=== PATIENT | female | born 2000 | race Caucasian/White ===

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

== ENCOUNTER 2023-11-20 20:21 | Emergency (ER) | payer OTHER, SELFPAY ==
[2023-11-20] MEDS ORDERED: HYDROCODONE/APAP 7.5/325 MG TAB ONE (21:26)
--- NOTE | 2023-11-20 22:08 | RAD REPORT ---
Exam:Wrist Right 3 View HISTORY: Right wrist pain FINDINGS: No fracture or dislocation seen If the patient continues to have symptoms to suggest an occult fracture then a follow-up x-ray in 7 d ays would be recommended
--- NOTE | 2023-11-20 22:10 | RAD REPORT ---
Exam:Hand Right 3 View HISTORY: Right hand pain FINDINGS: No fracture or dislocation seen
--- NOTE | 2023-11-20 22:10 | RAD REPORT ---
Exam:Shoulder Right 2+ Views History: Right shoulder pain Findings: No fracture or dislocation seen
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
[2023-11-21 01:02] VITALS: TEMP 98
[2023-11-21 01:03] VITALS: O2SAT 99
[2023-11-21 01:06] VITALS: BP 134/53
== END 2023-11-21 00:29 | disposition home or self-care (01) ==
LOC: ER 20:21
DX: S43.491A Other sprain of right shoulder joint, initial encounter (principal); S63.8X1A Sprain of other part of right wrist and hand, initial encounter; S60.221A Contusion of right hand, initial encounter; V49.50XA Passenger injured in collision with unspecified motor vehicles in traffic accident, initial encounter
CPT/HCPCS: 99284

== ENCOUNTER 2024-01-31 11:23 | Emergency (ER) | payer BC, SELFPAY ==
[2024-01-31] MEDS ORDERED: KETOROLAC 30 MG/ML INJ ONE (11:44)
[2024-01-31 12:06] LABS: Absolute Basophils 0.1 K/uL (0-0.5); Absolute Eosinophils 0.1 K/uL (0-0.5); Absolute Lymphocytes (CBC) 2.7 K/uL (0.7-4.9); Absolute Monocytes 0.4 K/uL (0.1-1.3); Absolute Neutrophil 5.8 K/uL (1.8-8.0); Basophils % 0.6 % (0-1.3); Eosinophils % 0.9 % (0-4.4); Hematocrit 42.2 % (36.0-45.0); Hemoglobin 13.9 g/dL (12.0-15.0); Lymphocytes % 29.9 % (15.3-44.8); MCH 27.8 pg (27.0-35.0); MCV 84.2 fL (80-100); MPV 8.2 fL (7.6-11.3); Neutrophils % 64.6 % (41.7-73.7); Platelets 285 thou/uL (152-406); RBC Red Blood Cell Count 5.01 M/uL (3.86-4.86); Red Cell Distribution Width 13.2 % (12.1-15.2)
[2024-01-31 12:23] LABS: Albumin 3.8 g/dL (3.4-5.0); Anion Gap 5.6 mEq/L (5.0-15.0); Bilirubin Total 0.3 mg/dL (0.2-1.0); Potassium 3.6 mEq/L (3.5-5.1); Protein, Total 7.8 g/dL (6.4-8.2)
--- NOTE | 2024-01-31 12:49 | RAD REPORT ---
EXAMINATION: CT ABDOMEN AND PELVIS WITH CONTRAST CLINICAL INDICATION: ABD PAIN TECHNIQUE: CT abdomen and pelvis was performed, after the administration of IV contrast, as per [facility] protocol. Axial, sagittal and coronal reconstructions were obtained. One or more of the following dose reduction techniques were used: Automated exposure control, adjustment of the mA and k V according to patient size, and iterative reconstruction. Unless otherwise specified, incidental findings do not require dedicated imaging follow-up. COMPARISON: No prior exam. FINDINGS: LOWER CHEST: The visualized lung bases are clear. LIVER: Normal in size and contour. No focal lesion. Grossly unremarkable gallbladder. SPLEEN: Normal size. No focal lesion. PANCREAS: No mass, ductal dilation, or benjamín-pancreatic fluid. ADRENALS: Normal; no mass. KIDNEYS: Normal size and contour. No hydronephrosis. GASTROINTESTINAL TRACT: No evidence of free air, significant intra-abdominal free fluid, bowel obstru ction or abscess. APPENDIX: Normal appendix. LYMPH NODES: No lymphadenopathy. MUSCULOSKELETAL: No acute or suspicious osseous abnormality. ADDITIONAL FINDINGS: Small fat-containing hernia. IMPRESSION: No acute or concerning abnormalities seen in the abdomen or pelvis.
--- NOTE | 2024-01-31 12:53 | RAD REPORT ---
EXAMINATION: TWO VIEW CHEST XR CLINICAL INDICATION: CHEST PAIN TECHNIQUE: 2 views of the chest was performed. COMPARISON: No prior exam. FINDINGS: The lungs are well inflated and clear. The heart is normal in size. No displaced fractures evident. IMPRESSION: No acute or significant abnormalities.
--- NOTE | 2024-01-31 13:47 | ER ---
Nurse's Notes [facility] Name: Dana Patton Age: 23 yrs Sex: Female : 2000 Arrival Date: 01/31/2024 Time: 11:23 Bed 13 Private MD: Diagnosis: Abdominal pain, Generalized;Chest pain, unspecified Presentation: 01/30 11:32 Chief complaint: Patient states: Abdominal pain and intermittent CP started today at 7 ll1 AM. Left work to come get checked out. Coronavirus screen: Client denies travel out of the [place] in the last 14 days. At this time, the client does not indicate any symptoms associated with coronavirus-19. Ebola Screen: Patient denies travel to an Ebola-affected area in the 21 days before illness onset. Initial Sepsis Screen: Does the patient meet any 2 criteria? No. Patient's initial sepsis screen is negative. Does the patient have a suspected source of infection? No. Patient's initial sepsis screen is negative. Risk Assessment: Do you want to hurt yourself or someone else? Patient reports no desire to harm self or others. Onset of symptoms was January 31, 2024. 11:32 Method Of Arrival: Wheelchair ll1 11:32 Acuity: DOMINGO 3 ll1 Triage Assessment: 11:34 General: Appears in no apparent distress. Behavior is calm, cooperative, appropriate ll1 for age. Pain: Complains of pain in abdomen Quality of pain is described as aching, crampy. Cardiovascular: Reports chest pain. GI: Reports lower abdominal pain, upper abdominal pain, cramping, nausea. Historical: - Allergies: 11:32 Adhesives; ll1 - PMHx: 11:32 depressive disorder; Lupus erythematosus; PCOS; ll1 - PSHx: 11:32 ectopic lap.; R wrist SX; ll1 - Immunization history:: Adult Immunizations up to date. - Infectious Disease History:: Denies. - Social history:: Smoking status: Patient denies any tobacco usage or history of. Screenin:32 [facility] ED Fall Risk Assessment (Adult) History of falling in the last 3 months, ph including since admission No falls in past 3 months (0 pts) Confusion or Disorientation No (0 pts) Intoxicated or Sedated No (0 pts) Impaired Gait No (0 pts) Mobility Assist Device Used No (0 pt) Altered Elimination No (0 pt) Score/Fall Risk Level 0 - 2 = Low Risk Oriented to surroundings, Maintained a safe environment, Hourly rounding (assess needs \T\ fall precautionary measures) done. Abuse screen: Denies threats or abuse. Denies injuries from another. Nutritional screening: No deficits noted. Tuberculosis screening: No symptoms or risk factors identified. Assessment: 12:03 General: Appears in no apparent distress. comfortable, well groomed, Behavior is calm, ph cooperative, appropriate for age. Pain: Complains of pain in abdomen Pain radiates to chest Pain began this morning. Neuro: Level of Consciousness is awake, alert, obeys commands, Oriented to person, place, time, situation. Cardiovascular: Capillary refill < 3 seconds in bilateral fingers Patient's skin is warm and dry. Respiratory: Airway is patent Respiratory effort is even, unlabored. GI: Reports upper abdominal pain, nausea, Patient currently denies diarrhea, vomiting. : No signs and/or symptoms were reported regarding the genitourinary system. Derm: Skin is pink, warm \T\ dry. Musculoskeletal: Circulation, motion, and sensation intact. Range of motion: intact in all extremities. 14:02 Reassessment: Patient appears in no apparent distress at this time. Patient and/or ph family updated on plan of care and expected duration. Pain level reassessed. Patient is alert, oriented x 3, equal unlabored respirations, skin warm/dry/pink. Vital Signs: 11:32 BP 135 / 86; Pulse 83; Resp 17; Temp 97.7; Pulse Ox 99% on R/A; Weight 87.09 kg; Height ll1 5 ft. 5 in. ; Pain 9/10; 12:04 BP 124 / 81; Pulse 69; Resp 18; Pulse Ox 95% on R/A; ph 14:02 BP 118 / 72; Pulse 67; Resp 18; Temp 97.9; Pulse Ox 98% on R/A; ph 11:32 Body Mass Index 31.95 (87.09 kg, 165.1 cm) ll1 11:32 Pain Scale: Adult ll1 ED Course: 11:28 Patient arrived in ED. ra3 11:28 Kumar Melvin DO is Attending Physician. ms3 11:32 Nely Beth RN is Primary Nurse. ph 11:32 Arm band placed on Patient placed in an exam room, on a stretcher. ll1 11:34 Triage completed. ll1 11:40 Patient has correct armband on for positive identification. Placed in gown. Bed in low ph position. Call light in reach. Side rails up X 1. Pulse ox on. NIBP on. Door closed. Noise minimized. Warm blanket given. Pillow given. 11:41 EKG done, by ED staff, reviewed by Kumar Melvin DO. bc6 11:50 Initial lab(s) drawn, by me, sent to lab. Inserted saline lock: 22 gauge in left ph antecubital area, using aseptic technique. Blood collected. Flushed with 10 mL NS. 12:01 Radiology exam delayed due to test not completed at this time. md2 12:02 CBC with Diff Sent. ph 12:02 CMP Sent. ph 12:02 Lipase Sent. ph 12:03 Test, Serum Sent. ph 12:05 Patient maintains SpO2 saturation greater than 95% on room air. ph 12:42 CT Abd/Pelvis - IV Contrast Only In Process Unspecified. EDMS 12:47 Chest Pa And Lat (2 Views) XRAY In Process Unspecified. EDMS 13:46 Boy Villalpando DO is Referral Physician. ms3 14:03 No provider procedures requiring assistance completed. IV discontinued, intact, ph bleeding controlled, No redness/swelling at site. Pressure dressing applied. Administered Medications: 12:02 Drug: TORadol - Ketorolac IVP 15 mg IVP once Route: IVP; Site: left antecubital; ph 14:02 Follow up: Response: No adverse reaction; Pain is decreased ph Medication: 11:33 VIS not applicable for this client. ph Outcome: 13:46 Discharge ordered by MD. ms3 14:03 Discharged to home ambulatory, ph 14:03 Condition: good 14:03 Discharge instructions given to patient, Instructed on discharge instructions, follow up and referral plans. Demonstrated understanding of instructions, follow-up care, 14:03 Patient left the ED. ph Signatures: Dispatcher [employer] EDMS Nely Beth RN RN ph Will French RN RN ll1 Kumar Melvin DO DO ms3 Mera Mary md2 Brenda Looney bc6 Mikki Mondragon ra3
--- NOTE | 2024-01-31 13:47 | EDPHYS ---
Physician Documentation [facility] Name: Dana Patton Age: 23 yrs Sex: Female : 2000 Arrival Date: 01/31/2024 Time: 11:23 Bed 13 Private MD: ED Physician Kumar Melvin HPI: 01/30 12:01 This 23 yrs old Female presents to ER via Wheelchair with complaints of Chest Pain - ms3 with stomach pain. 12:01 Dana Le is a 23-year-old female who presents to the Emergency Department with ms3 severe abdominal and chest pain since 7 AM today. She rates her pain as 8.5 to 9 out of 10. The abdominal pain is diffuse but includes a sharp pain over the left ovary. She reports that standing and driving increase her pain. She reports not having nausea, vomiting, diarrhea, or fever. She has a history of polycystic ovary syndrome (PCOS). . Historical: - Allergies: 11:32 Adhesives; ll1 - PMHx: 11:32 depressive disorder; Lupus erythematosus; PCOS; ll1 - PSHx: 11:32 ectopic lap.; R wrist SX; ll1 - Immunization history:: Adult Immunizations up to date. - Infectious Disease History:: Denies. - Social history:: Smoking status: Patient denies any tobacco usage or history of. ROS: 12:01 Constitutional: Negative for fever, and chills. Cardiovascular: Negative for chest ms3 pain, and palpitations. Respiratory: Negative for shortness of breath, cough, wheezing, and pleuritic chest pain, 12:01 MS/Extremity: Negative for injury and deformity, Skin: Negative for injury, rash, and discoloration, 12:01 Abdomen/GI: Positive for abdominal pain, Exam: 12:01 Constitutional: This is a well developed, well nourished patient who is awake, alert, ms3 and in no acute distress. Head/Face: Normocephalic, atraumatic. Chest/axilla: Normal chest wall appearance and motion. Nontender with no deformity. Cardiovascular: Regular rate and rhythm with a normal S1 and S2. No gallops, murmurs, or rubs. Normal PMI, no JVD. No pulse deficits. Respiratory: Lungs have equal breath sounds bilaterally, clear to auscultation and percussion. No rales, rhonchi or wheezes noted. No increased work of breathing, no retractions or nasal flaring. 12:01 Abdomen/GI: Inspection: abdomen appears normal, Bowel sounds: normal, Palpation: moderate abdominal tenderness, in the left upper quadrant and left lower quadrant, 12:03 ECG was reviewed by the Attending Physician. ms3 Vital Signs: 11:32 BP 135 / 86; Pulse 83; Resp 17; Temp 97.7; Pulse Ox 99% on R/A; Weight 87.09 kg; Height ll1 5 ft. 5 in. ; Pain 9/10; 12:04 BP 124 / 81; Pulse 69; Resp 18; Pulse Ox 95% on R/A; ph 14:02 BP 118 / 72; Pulse 67; Resp 18; Temp 97.9; Pulse Ox 98% on R/A; ph 11:32 Body Mass Index 31.95 (87.09 kg, 165.1 cm) ll1 11:32 Pain Scale: Adult ll1 MDM: 11:51 Medical Screening Exam initiated ms3 12:01 Differential diagnosis: abnormal EKG, acute myocardial infarction. ms3 12:02 Differential diagnosis: pneumothorax, bowel obstruction, diverticulitis. ms3 13:47 HEART Score: History: Slightly Suspicious (0), ECG: Normal (0), Age: < or = 45 years ms3 (0), Risk Factors: No Risk Factors Known (0), Troponin: < or = 1 x Normal Limit (0), Total Score = 0. Data reviewed: vital signs, nurses notes, lab test result(s), EKG, radiologic studies, CT scan, plain films. I considered the following discharge prescriptions or medication management in the emergency department Medications were administered in the Emergency Department. See MAR. Independent interpretation of the following test(s) in the Emergency Department EKG: See my EKG interpretation above. Counseling: I had a detailed discussion with the patient and/or guardian regarding the historical points, exam findings, and any diagnostic results supporting the discharge/admit diagnosis, lab results, radiology results, the need for outpatient follow up, to return to the emergency department if symptoms worsen or persist or if there are any questions or concerns that arise at home. Special discussion: Based on the patient's Hx, exam, and Dx evaluation, there is no indication for emergent surgery or inpatient Tx. It is understood by the patient/guardian that if the Sx's persist or worsen they need to return immediately for re-evaluation. ED course: Discussed labs and imaging with patient. CT scan showing small fat-containing hernia. Patient to follow-up with primary care physician in 2 to 3 days. Patient or stands and agrees with plan. All questions were answered. Return precautions discussed include worsening symptoms, or any other concerns. On reevaluation patient symptoms improved, patient is alert and orient x 4, in no apparent distress, nontoxic-appearing. 01/30 11:41 Order name: CBC with Diff; Complete Time: 12:32 ms3 01/30 11:41 Order name: CMP; Complete Time: 12:32 ms3 01/30 11:41 Order name: Lipase; Complete Time: 12:32 ms3 01/30 11:41 Order name: Test, Serum; Complete Time: 12:32 ms3 01/30 11:41 Order name: CT Abd/Pelvis - IV Contrast Only; Complete Time: 13:34 ms3 01/30 11:41 Order name: Chest Pa And Lat (2 Views) XRAY; Complete Time: 13:34 ms3 01/30 11:41 Order name: EKG; Complete Time: 11:42 ms3 01/30 11:41 Order name: IV Saline Lock; Complete Time: 12:02 ms3 01/30 11:41 Order name: Labs collected and sent; Complete Time: 12:02 ms3 01/30 11:41 Order name: EKG - Nurse/Tech; Complete Time: 11:41 ms3 EC:03 Rate is 74 beats/min. Rhythm is regular. QRS [place] is Normal. DE interval is normal. QRS ms3 interval is normal. Clinical impression: NSR w/ Non-specific ST/T Changes. Interpreted by me. Reviewed by me. Administered Medications: 12:02 Drug: TORadol - Ketorolac IVP 15 mg IVP once Route: IVP; Site: left antecubital; ph 14:02 Follow up: Response: No adverse reaction; Pain is decreased ph Disposition Summary: 01/31/24 13:46 Discharge Ordered Notes: Location: Home ms3 Condition: Stable ms3 Diagnosis - Abdominal pain, Generalized ms3 - Chest pain, unspecified ms3 Followup: ms3 - With: Boy Villalpando, DO - When: 2 - 3 days - Reason: Recheck today's complaints Discharge Instructions: - Discharge Summary Sheet ll1 - Abdominal Pain, Adult ms3 - Nonspecific Chest Pain, Adult ms3 Forms: - Work release form ll1 - Medication Reconciliation Form ms3 - Antibiotic Education ms3 - Prescription Opioid Use ms3 - Patient Portal Instructions ms3 - Leadership Thank You Letter ms3 Signatures: Dispatcher [employer] Nely Sarkar RN RN Manolo, CELINE Solis RN 1 Kumar Melvin, DO DO ms3
[2024-01-31 14:12] VITALS: BP 118/72; TEMP 97.9; O2SAT 98
--- NOTE | 2024-02-02 15:51 | EKG ---
Test Date: 2024-01-31 Test Time: 11:35:33 Straw Baler: ERASTOW MEASUREMENT RESULTS: Intervals: Rate: 74 TX: 154 QRSD: 86 QT: 360 QTc: 399 [place]: P: 52 TX: 154 QRS: 73 T: 40 INTERPRETIVE STATEMENTS: Normal sinus rhythm Nonspecific T wave abnormality Abnormal ECG No previous ECG available for comparison Electronically Signed On 02-02-24 15:48:18 TRUCK JUMPER by Ward Masters
== END 2024-01-31 14:03 | disposition home or self-care (01) ==
LOC: ER 11:23
DX: R07.9 Chest pain, unspecified (principal); R10.84 Generalized abdominal pain
CPT/HCPCS: 93005; 85025; 36415; 84703; 83690; 80053; 74177; 71046; 96374; 99284; Q9967

== ENCOUNTER 2024-02-04 00:17 | Emergency (ER) | payer BC ==
[2024-02-04] MEDS ORDERED: ONDANSETRON 4 MG/2 ML VIAL ONE (00:40)
[2024-02-04] MEDS ORDERED: KETOROLAC 30 MG/ML INJ ONE (00:40)
[2024-02-04] MEDS ORDERED: NA CHLORIDE 0.9% 1,000 ML ONE ×2 (00:40→02:59)
[2024-02-04 00:52] LABS: Absolute Basophils 0.1 K/uL (0-0.5); Absolute Eosinophils 0.3 K/uL (0-0.5); Absolute Lymphocytes (CBC) 5.2 K/uL (0.7-4.9); Absolute Monocytes 0.7 K/uL (0.1-1.3); Absolute Neutrophil 6.4 K/uL (1.8-8.0); Basophils % 1.1 % (0-1.3); Eosinophils % 2.7 % (0-4.4); Hematocrit 40.8 % (36.0-45.0); Hemoglobin 13.8 g/dL (12.0-15.0); Lymphocytes % 40.4 % (15.3-44.8); MCHC 33.9 g/dL (32.0-36.0); MCV 82.6 fL (80-100); MPV 7.9 fL (7.6-11.3); Monocytes % 5.5 % (3.3-12.3); Neutrophils % 50.3 % (41.7-73.7); Nucleated Red Blood Cells % 0.3 % (0-0); Platelets 302 thou/uL (152-406); RBC Red Blood Cell Count 4.94 M/uL (3.86-4.86); Red Cell Distribution Width 13.7 % (12.1-15.2)
[2024-02-04 01:07] LABS: Albumin 3.5 g/dL (3.4-5.0); Albumin/Globulin Ratio 0.9 (1.1-1.8); Anion Gap 10.5 mEq/L (5.0-15.0); Bilirubin Total 0.2 mg/dL (0.2-1.0); Potassium 3.5 mEq/L (3.5-5.1); Protein, Total 7.5 g/dL (6.4-8.2)
[2024-02-04] MEDS ORDERED: FENTANYL CITR 100 MCG/2 ML ONE (01:35)
--- NOTE | 2024-02-04 02:11 | RAD REPORT ---
EXAM: US Pelvis Transabdominal, Complete CLINICAL HISTORY: The patient is 23 years old and is Female; ABD PAIN TECHNIQUE: Real-time complete transabdominal pelvic ultrasound with image documentation. COMPARISON: No relevant prior studies available. FINDINGS: UTERUS/CERVIX: The uterus measures 6.6 x 2.9 x 5.5 cm. Endometrium measures 0.3 cm. No myometri al mass. RIGHT OVARY: The right ovary measures 3.3 x 1.9 x 3.1 cm. Normal blood flow. LEFT OVARY: The left ovary measures 3.8 x 1.9 x 2.7 cm. Normal blood flow. FREE FLUID: Free fluid is present within the cul-de-sac. BLADDER: Unremarkable as visualized. Wall is normal thickness for degree of distention. IMPRESSION: Unremarkable pelvic ultrasound. Electronically signed by: Adelaida Flaherty MD 02/04/2024 01:[address] [facility] Due to temporary technical issues with the PACS/Quaam scribe reporting system, reports are being sign ed by the in-house radiologist without review as a courtesy to ensure prompt reporting the interpreting rad iologist is fully responsible for the content of the report. Transcribed Date/Time: 02/04/2024 2:10 AM
[2024-02-04] MEDS ORDERED: LORazepam 2 MG/ML VIAL ONE (02:15)
[2024-02-04 02:37] LABS: Specific Gravity 1.017 (1.005-1.030); Sqamous Epithelial None Seen /HPF (None Seen); Urine Bacteria None Seen /HPF (<20); Urine Bilirubin NEGATIVE (Negative); Urine Blood Negative (Negative); Urine Clarity Clear (Clear); Urine Color Colorless (Yellow); Urine Crystals Unidentified Few /HPF (None Seen); Urine Culture Reflex Order NOT NEEDED; Urine Glucose NEGATIVE (Negative); Urine Ketones NEGATIVE (Negative); Urine Microscopic Reflex YN ORDER UMIC; Urine Nitrite NEGATIVE (Negative); Urine Protein NEGATIVE (Negative); Urine RBC <5 /HPF (None Seen); Urine Urobilinogen Normal (Normal); Urine WBC <5 /HPF (<5)
[2024-02-04] MEDS ORDERED: DICYCLOMINE HCL 20 MG/2 ML AMP IM ONE (02:58)
[2024-02-04] MEDS ORDERED: dexAMETHasone 10 MG/ML VIAL ONE (02:58)
[2024-02-04] MEDS ORDERED: CIPROFLOXACIN 400mg IV 400 MG/200 ML BAG IV ONE (02:59)
[2024-02-04] MEDS ORDERED: METRONIDAZOLE 500mg IVPB 500 MG/100 ML BAG IV ONE (02:59)
--- NOTE | 2024-02-04 03:00 | RAD REPORT ---
EXAM: CT Abdomen and Pelvis With Intravenous Contrast CLINICAL HISTORY: The patient is 23 years old and is Female; lower abdomen pain TECHNIQUE: Axial computed tomography images of the abdomen and pelvis with intravenous contrast. Sagittal an d coronal reformatted images were created and reviewed. This CT exam was performed using one or more of the following dose reduction techniques: automated exposure control, adjustment of the mA a nd/or kV according to patient size, and/or use of iterative reconstruction technique. COMPARISON: CT January 31, 2024 FINDINGS: LUNG BASES: Unremarkable. No mass. No consolidation. ABDOMEN: LIVER: Unremarkable. No mass. GALLBLADDER AND BILE DUCTS: No calcified stones. No ductal dilation. PANCREAS: No ductal dilation. No mass. SPLEEN: Unremarkable. ADRENALS: Unremarkable. No mass. KIDNEYS AND URETERS: Unremarkable. The kidneys enhance symmetrically. No obstructing renal or ure teral calculus is seen. No hydronephrosis or hydroureter. No perinephric fluid or stranding. STOMACH AND BOWEL: The stomach is distended with food contents. The small bowel is fluid-filled a nd normal in caliber. A moderate rectal stool ball is present. A moderate amount of stool is present throughout the colon. Mucosal thickening involving the distal descending and sigmoid colon is noted. There is no evidence of obstruction. PELVIS: APPENDIX: The appendix is normal in caliber without surrounding inflammation. BLADDER: Unremarkable. No mass. REPRODUCTIVE: Unremarkable as visualized. ABDOMEN and PELVIS: INTRAPERITONEAL SPACE: Unremarkable. No free air. No significant fluid collection. BONES/JOINTS: No acute fracture. SOFT TISSUES: Tiny fat-containing umbilical hernia is present. VASCULATURE: Unremarkable. No abdominal aortic aneurysm. LYMPH NODES: Unremarkable. No enlarged lymph nodes. IMPRESSION: 1. Findings suggest focal colitis involving the distal descending and sigmoid colon. No evidence of obstruction. 2. Moderate stool burden. Electronically signed by: Adelaida Flaherty MD 02/04/2024 02:20 AM [facility] Due to temporary technical issues with the PACS/Webs reporting system, reports are being rosibel d by the in-house radiologist without review as a courtesy to ensure prompt reporting the interpreting radiologist is fully responsible for the content of the report. Transcribed Date/Time: 02/04/2024 3:00 AM
[2024-02-04] MEDS ORDERED: PROMETHAZINE INJ 25 MG/ML AMP ONE (05:08)
--- NOTE | 2024-02-04 05:19 | EDPHYS ---
Physician Documentation [facility] Name: Dana Patton Age: 23 yrs Sex: Female : 2000 Arrival Date: 02/04/2024 Time: 00:17 Bed 7 Private MD: ED Physician Randell Rolon HPI: 02/03 00:34 This 23 yrs old Female presents to ER via Unassigned with complaints of Abdominal cp Cramping. 00:35 The patient presents with abdominal pain in the lower abdomen. cp 00:35 Onset: The symptoms/episode began/occurred tonight at 2350. cp 00:35 The symptoms do not radiate. Associated signs and symptoms: Pertinent negatives: chest cp pain, constipation, diarrhea, dysuria, fever, vomiting. The symptoms are described as crampy. Severity of pain: in the emergency department the pain is actually worse. 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 - Infectious Disease History:: Denies. - Social history:: Smoking status: Reported history of juuling and/or vaping. ROS: 00:36 Eyes: Negative for injury, pain, redness, and discharge, cp 00:36 Constitutional: Negative for body aches, chills, fever, poor PO intake, 00:36 Cardiovascular: Negative for chest pain, palpitations, 00:36 Respiratory: Negative for cough, shortness of breath, wheezing, 00:36 Abdomen/GI: Positive for nausea, abdominal cramps, Negative for vomiting, diarrhea, constipation, anorexia, 00:36 Back: Negative for pain at rest, pain with movement, 00:36 : Negative for flank pain, vaginal bleeding, 00:36 All other systems are negative, Exam: 00:40 Constitutional: The patient appears in no acute distress, alert, awake, non-toxic, well cp developed, well nourished, in obvious pain, 00:40 Head/Face: Normocephalic, atraumatic. cp 00:40 Eyes: Periorbital structures: appear normal, Conjunctiva: normal, no exudate, no injection, Sclera: no appreciated abnormality, Lids and lashes: appear normal, bilaterally, 00:40 ENT: External ear(s): are unremarkable, Nose: is normal, Mouth: Lips: moist, Oral mucosa: moist, Posterior pharynx: Airway: no evidence of obstruction, patent, 00:40 Chest/axilla: Inspection: normal, 00:40 Cardiovascular: Rate: normal, 00:40 Respiratory: the patient does not display signs of respiratory distress, Respirations: normal, no use of accessory muscles, no retractions, labored breathing, is not present, Breath sounds: are clear throughout, no decreased breath sounds, no stridor, 00:40 Abdomen/GI: Inspection: abdomen appears normal, Bowel sounds: active, all quadrants, Palpation: soft, in all quadrants, severe abdominal tenderness, in the right lower quadrant and left lower quadrant, rebound tenderness, is not appreciated, involuntary guarding, is not appreciated, 00:40 Back: CVA tenderness, is absent, Vital Signs: 00:38 BP 144 / 93; Pulse 99; Resp 18; Temp 99.5; Pulse Ox 99% ; Pain 10/10; cp4 02:22 BP 131 / 89; Pulse 98; Resp 18; Pulse Ox 98% ; cp4 03:20 BP 131 / 85; Pulse 95; Resp 18 S; Pulse Ox 100% on R/A; ha1 04:00 BP 117 / 76; Pulse 71; Resp 18; Pulse Ox 100% ; cp4 05:00 BP 120 / 71; Pulse 69; Resp 17 S; Pulse Ox 100% on R/A; ha1 05:45 BP 121 / 72; Pulse 68; Resp 19 S; Temp 98.1(T); Pulse Ox 100% on R/A; ha1 00:38 Pain Scale: Adult cp4 MDM: 00:22 Medical Screening Exam initiated cp 01:00 Differential diagnosis: appendicitis, cholecystitis, Cholelithiasis, diverticulitis, cp Ectopic , Endometriosis, gastritis, non-specific abd pain, Ovarian Torsion, Pyelonephritis, Ureterolithiasis, urinary tract infection. 05:17 Data reviewed: vital signs, nurses notes, lab test result(s), radiologic studies, CT cp scan, ultrasound, and as a result, I will discharge patient. 05:17 I considered the following discharge prescriptions or medication management in the emergency department Medications were administered in the Emergency Department. See MAR. 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 Response to treatment: the patient's symptoms have markedly improved after treatment, and as a result, I will discharge patient. 02/03 00:36 Order name: CBC with Diff; Complete Time: 01:10 02/03 01:10 Interpretation: Normal except: WBC 12.80; RBC 4.94; LYMA 5.2. 02/03 00:36 Order name: CMP; Complete Time: 01:10 02/03 01:10 Interpretation: Normal except: CL 109; GLUC 117; GLOB 4.0; A/G 0.9. 02/03 00:36 Order name: Lipase; Complete Time: 01:10 02/03 00:36 Order name: Urinalysis w/ reflexes; Complete Time: 03:09 02/03 00:36 Order name: Test, Serum; Complete Time: 01:10 02/03 02:38 Order name: Ova And Parasites 02/03 02:38 Order name: Rotavirus Antigen 02/03 02:38 Order name: Stool Culture 02/03 02:38 Order name: CDIFF 02/03 00:36 Order name: US Pelvis Complete 02/03 02:30 Interpretation: Report reviewed. 02/03 01:11 Order name: CT Abd/Pelvis - IV Contrast Only 02/03 03:09 Interpretation: Report reviewed. 02/03 00:36 Order name: IV Saline Lock; Complete Time: 00:45 02/03 00:36 Order name: Labs collected and sent; Complete Time: 00:45 02/03 03:10 Order name: PO challenge; Complete Time: 03:16 Administered Medications: 00:43 Drug: Ondansetron IVP 4 mg IVP once; over 2 minutes Route: IVP; Site: right antecubital;ha1 01:10 Follow up: Response: No adverse reaction; Marked relief of symptoms ha1 00:45 Drug: TORadol - Ketorolac IVP 15 mg IVP once Route: IVP; Site: right antecubital; ha1 01:00 Follow up: Response: No adverse reaction; Pain is decreased ha1 00:45 Drug: NS 0.9% IV 1000 ml IV at 1 bolus Per protocol; to be given as a bolus over 60 ha1 minutes Route: IV; Rate: 1 bolus; Site: right antecubital; 02:00 Follow up: Response: No adverse reaction; IV Status: Completed infusion; IV Intake: ha1 1000ml 01:39 Drug: fentaNYL (PF) IVP 25 mcg IVP once Route: IVP; Site: right antecubital; ha1 02:06 Follow up: Response: No adverse reaction; Pain is decreased cp4 01:39 Drug: fentaNYL (PF) IVP 25 mcg IVP once Route: IVP; Site: right antecubital; ha1 02:06 Follow up: Response: No adverse reaction; Pain is decreased cp4 02:50 Follow up: Response: No adverse reaction; Marked relief of symptoms ha1 02:23 Drug: Ativan IVP 1 mg IVP once Route: IVP; Site: right antecubital; ha1 02:45 Follow up: Response: No adverse reaction; Marked relief of symptoms ha1 03:10 Drug: Dexamethasone IVP 10 mg IVP once; (not to exceed 40 mg) Route: IVP; Site: right ha1 antecubital; 03:35 Follow up: Response: No adverse reaction ha1 03:12 Drug: NS 0.9% IV 1000 ml IV at 1 bolus Per protocol; to be given as a bolus over 60 ha1 minutes Route: IV; Rate: 1 bolus; Site: right antecubital; 05:00 Follow up: Response: No adverse reaction; IV Status: Completed infusion; IV Intake: ha1 1000ml 03:14 Drug: metroNIDAZOLE IVPB 500 mg 100 ml IVPB once over 30 mins Volume: 100 ml; Route: ha1 IVPB; Infused Over: 30 mins; Site: right antecubital; 04:14 Follow up: Response: No adverse reaction; IV Status: Completed infusion cp4 04:14 Follow up: Response: No adverse reaction; IV Status: Completed infusion; IV Intake: ha1 100ml 03:15 Drug: Dicyclomine IM 20 mg IM once Route: IM; Site: right vastus lateralis; ha1 03:35 Follow up: Response: No adverse reaction; Marked relief of symptoms ha1 04:21 Drug: Ciprofloxacin IVPB 400 mg 200 ml IVPB once over 60 mins Volume: 200 ml; Route: cp4 IVPB; Infused Over: 60 mins; Site: right antecubital; 05:45 Follow up: Response: No adverse reaction; IV Status: Completed infusion; IV Intake: ha1 200ml 05:30 Drug: Promethazine IM 25 mg IM once Route: IM; Site: right ventrogluteal; ha1 05:50 Follow up: Response: No adverse reaction; Marked relief of symptoms ha1 Disposition Summary: 02/04/24 05:18 Discharge Ordered Notes: Location: Home cp Problem: new cp Symptoms: have improved cp Condition: Stable cp Diagnosis - Indeterminate colitis cp Followup: cp - With: Sean Bar MD - When: 2 - 3 days - Reason: Recheck today's complaints Discharge Instructions: - Discharge Summary Sheet cp - Colitis cp Forms: - Medication Reconciliation Form cp - Antibiotic Education cp - Prescription Opioid Use cp - Patient Portal Instructions cp - Leadership Thank You Letter cp Prescriptions: - Cipro 500 mg Oral tablet - take 1 tablet ORAL route every 12 hours for 10 days; 20 tablet; Refills: 0, cp Product Selection Permitted - Metronidazole 500 mg Oral Tablet - take 1 tablet ORAL route every 8 hours; 30 tablet; Refills: 0, Product cp Selection Permitted - promethazine 25 mg Oral Tablet - take 1 tablet ORAL route every 6 hours As needed; 20 tablet; Refills: 0, cp Product Selection Permitted - dicyclomine 20 mg Oral tablet - take 1 tablet ORAL route 4 times per day; 30 tablet; Refills: 0, Product cp Selection Permitted Signatures: Dispatcher [employer] EDMS Randell Dickerson PA PA cp Ekaterina Cao RN RN ha1 Camila Mo cp4 Corrections: (The following items were deleted from the chart) 02:38 02:38 Ova and Parasites+MR.LAB.BRZ ordered. EDMS EDMS 02:38 02:38 Rotavirus Antigen+BA.LAB.BRZ ordered. EDMS EDMS 02:38 02:38 Stool Culture+BA.LAB.BRZ ordered. EDMS EDMS 02:38 02:38 C.difficile GDH Ag \T\ Toxin AB+LAB.BRZ ordered. EDMS EDMS
--- NOTE | 2024-02-04 05:19 | ER ---
Nurse's Notes [facility] Name: Dana Patton Age: 23 yrs Sex: Female : 2000 Arrival Date: 02/04/2024 Time: 00:17 Bed 7 Private MD: Diagnosis: Indeterminate colitis Presentation: 02/03 00:38 Chief complaint: Patient states: lower abdominal pain that started at 2350. States she cp4 was here several days ago for abdominal pain but this time it is different. Coronavirus screen: Client denies travel out of the [place] in the last 14 days. At this time, the client does not indicate any symptoms associated with coronavirus-19. Ebola Screen: Patient negative for fever greater than or equal to 101.5 degrees Fahrenheit, and additional compatible Ebola Virus Disease symptoms Patient denies exposure to infectious person. Patient denies travel to an Ebola-affected area in the 21 days before illness onset. No symptoms or risks identified at this time. Initial Sepsis Screen: Does the patient meet any 2 criteria? HR > 90 bpm. No. Patient's initial sepsis screen is negative. Does the patient have a suspected source of infection? No. Patient's initial sepsis screen is negative. Risk Assessment: Do you want to hurt yourself or someone else? Patient reports no desire to harm self or others. Onset of symptoms was February 03, 2024 at 23:50. 00:38 Method Of Arrival: Ambulatory cp4 00:38 Acuity: DOMINGO 3 cp4 Triage Assessment: 00:40 General: Appears in no apparent distress. uncomfortable, Behavior is calm, cooperative, cp4 appropriate for age. Pain: Complains of pain in abdomen Pain currently is 10 out of 10 on a pain scale. EENT: No signs and/or symptoms were reported regarding the EENT system. Neuro: Level of Consciousness is awake, alert, obeys commands, Oriented to person, place, time, situation. Cardiovascular: Patient's skin is warm and dry. Respiratory: Airway is patent Respiratory effort is even, unlabored. GI: Abdomen is round non-distended, Bowel sounds present X 4 quads. Abdomen is tender to palpation in right lower quadrant and left lower quadrant Reports lower abdominal pain, Pain is 10 out of 10 on a pain scale. : No signs and/or symptoms were reported regarding the genitourinary system. Derm: No signs and/or symptoms reported regarding the dermatologic system. Musculoskeletal: No signs and/or symptoms reported regarding the musculoskeletal system. UM RN: 00:40 Not cp4 Historical: - Allergies: 00:40 Adhesives; cp4 - PMHx: 00:40 depressive disorder; Lupus erythematosus; PCOS; cp4 - PSHx: 00:40 ectopic lap.; R wrist SX; cp4 - Immunization history:: Adult Immunizations up to date. - Infectious Disease History:: Denies. - Social history:: Smoking status: Reported history of juuling and/or vaping. Screenin:43 [facility] ED Fall Risk Assessment (Adult) History of falling in the last 3 months, cp4 including since admission No falls in past 3 months (0 pts) Confusion or Disorientation No (0 pts) Intoxicated or Sedated No (0 pts) Impaired Gait No (0 pts) Mobility Assist Device Used No (0 pt) Altered Elimination No (0 pt) Score/Fall Risk Level 0 - 2 = Low Risk Oriented to surroundings, Maintained a safe environment, Assessed \T\ reinforced patient's understanding of fall precautions, Hourly rounding (assess needs \T\ fall precautionary measures) done. Abuse screen: Denies threats or abuse. Nutritional screening: No deficits noted. Tuberculosis screening: No symptoms or risk factors identified. Assessment: 00:43 Reassessment: No changes from previously documented assessment. cp4 02:23 Reassessment: Patient appears in no apparent distress at this time. Patient and/or cp4 family updated on plan of care and expected duration. Pain level reassessed. Patient is alert, oriented x 3, equal unlabored respirations, skin warm/dry/pink. 03:30 Reassessment: Patient and/or family updated on plan of care and expected duration. Pain ha1 level reassessed. Patient is alert, oriented x 3, equal unlabored respirations, skin warm/dry/pink. Patient states feeling better. Patient states symptoms have improved. 04:30 Reassessment: Patient and/or family updated on plan of care and expected duration. Pain ha1 level reassessed. Patient is alert, oriented x 3, equal unlabored respirations, skin warm/dry/pink. Patient states feeling better. Patient states symptoms have improved. 05:35 Reassessment: Patient and/or family updated on plan of care and expected duration. Pain ha1 level reassessed. Patient is alert, oriented x 3, equal unlabored respirations, skin warm/dry/pink. Patient denies pain at this time. Patient states feeling better. Patient states symptoms have improved. Vital Signs: 00:38 BP 144 / 93; Pulse 99; Resp 18; Temp 99.5; Pulse Ox 99% ; Pain 10/10; cp4 02:22 BP 131 / 89; Pulse 98; Resp 18; Pulse Ox 98% ; cp4 03:20 BP 131 / 85; Pulse 95; Resp 18 S; Pulse Ox 100% on R/A; ha1 04:00 BP 117 / 76; Pulse 71; Resp 18; Pulse Ox 100% ; cp4 05:00 BP 120 / 71; Pulse 69; Resp 17 S; Pulse Ox 100% on R/A; ha1 05:45 BP 121 / 72; Pulse 68; Resp 19 S; Temp 98.1(T); Pulse Ox 100% on R/A; ha1 00:38 Pain Scale: Adult cp4 ED Course: 00:17 Patient arrived in ED. mr 00:18 Randell Dickerson PA is PHCP. cp 00:18 Randell Rolon MD is Attending Physician. cp 00:37 Camila Mo is Primary Nurse. cp4 00:40 Triage completed. cp4 00:40 Arm band placed on right wrist. Patient placed in waiting room. cp4 00:43 Bed in low position. Call light in reach. Side rails up X2. cp4 00:43 No provider procedures requiring assistance completed. cp4 00:45 CBC with Diff Sent. ha1 00:45 CMP Sent. ha1 00:45 Lipase Sent. ha1 00:46 Initial lab(s) drawn, by nd, sent to lab. Inserted saline lock: 20 gauge in right ty antecubital area, using aseptic technique. Blood collected. Flushed with 10 mL NS. 01:27 US Pelvis Complete In Process Unspecified. EDMS 01:47 CT Abd/Pelvis - IV Contrast Only In Process Unspecified. EDMS 05:18 Sean Bar MD is Referral Physician. cp 05:50 Provided Education on: Colitis .and medication administration . ha1 05:50 IV discontinued, intact, bleeding controlled, No redness/swelling at site. Pressure ha1 dressing applied. Administered Medications: 00:43 Drug: Ondansetron IVP 4 mg IVP once; over 2 minutes Route: IVP; Site: right antecubital;ha1 01:10 Follow up: Response: No adverse reaction; Marked relief of symptoms ha1 00:45 Drug: TORadol - Ketorolac IVP 15 mg IVP once Route: IVP; Site: right antecubital; ha1 01:00 Follow up: Response: No adverse reaction; Pain is decreased ha1 00:45 Drug: NS 0.9% IV 1000 ml IV at 1 bolus Per protocol; to be given as a bolus over 60 ha1 minutes Route: IV; Rate: 1 bolus; Site: right antecubital; 02:00 Follow up: Response: No adverse reaction; IV Status: Completed infusion; IV Intake: ha1 1000ml 01:39 Drug: fentaNYL (PF) IVP 25 mcg IVP once Route: IVP; Site: right antecubital; ha1 02:06 Follow up: Response: No adverse reaction; Pain is decreased cp4 01:39 Drug: fentaNYL (PF) IVP 25 mcg IVP once Route: IVP; Site: right antecubital; ha1 02:06 Follow up: Response: No adverse reaction; Pain is decreased cp4 02:50 Follow up: Response: No adverse reaction; Marked relief of symptoms ha1 02:23 Drug: Ativan IVP 1 mg IVP once Route: IVP; Site: right antecubital; ha1 02:45 Follow up: Response: No adverse reaction; Marked relief of symptoms ha1 03:10 Drug: Dexamethasone IVP 10 mg IVP once; (not to exceed 40 mg) Route: IVP; Site: right ha1 antecubital; 03:35 Follow up: Response: No adverse reaction ha1 03:12 Drug: NS 0.9% IV 1000 ml IV at 1 bolus Per protocol; to be given as a bolus over 60 ha1 minutes Route: IV; Rate: 1 bolus; Site: right antecubital; 05:00 Follow up: Response: No adverse reaction; IV Status: Completed infusion; IV Intake: ha1 1000ml 03:14 Drug: metroNIDAZOLE IVPB 500 mg 100 ml IVPB once over 30 mins Volume: 100 ml; Route: ha1 IVPB; Infused Over: 30 mins; Site: right antecubital; 04:14 Follow up: Response: No adverse reaction; IV Status: Completed infusion cp4 04:14 Follow up: Response: No adverse reaction; IV Status: Completed infusion; IV Intake: ha1 100ml 03:15 Drug: Dicyclomine IM 20 mg IM once Route: IM; Site: right vastus lateralis; ha1 03:35 Follow up: Response: No adverse reaction; Marked relief of symptoms ha1 04:21 Drug: Ciprofloxacin IVPB 400 mg 200 ml IVPB once over 60 mins Volume: 200 ml; Route: cp4 IVPB; Infused Over: 60 mins; Site: right antecubital; 05:45 Follow up: Response: No adverse reaction; IV Status: Completed infusion; IV Intake: ha1 200ml 05:30 Drug: Promethazine IM 25 mg IM once Route: IM; Site: right ventrogluteal; ha1 05:50 Follow up: Response: No adverse reaction; Marked relief of symptoms ha1 Medication: 00:43 VIS not applicable for this client. cp4 Intake: 02:00 IV: 1000ml; Total: 1000ml. ha1 04:14 IV: 100ml; Total: 1100ml. ha1 05:00 IV: 1000ml; Total: 2100ml. ha1 05:45 IV: 200ml; Total: 2300ml. ha1 Outcome: 05:18 Discharge ordered by MD. cp 05:50 Discharged to home ambulatory, with family, ha1 05:50 Condition: stable 05:50 Discharge instructions given to patient, family, Instructed on discharge instructions, follow up and referral plans. medication usage, Demonstrated understanding of instructions, follow-up care, medications, Prescriptions given X 3, 05:59 Patient left the ED. af3 Signatures: Dispatcher [employer] EDMonet Beltran, Danilo Carrasco mr Randell Dickerson PA PA cp Ekaterina Cao RN RN ha1 Camila Mo cp4 Gabriel Dodge Ashley af3 Corrections: (The following items were deleted from the chart) 06:26 04:14 Response: No adverse reaction; IV Status: Completed infusion cp4 ha1
[2024-02-04 06:03] VITALS: TEMP 99.5
[2024-02-04 06:06] VITALS: O2SAT 100
[2024-02-04 06:08] VITALS: BP 117/76
[2024-02-04 06:48] LABS: C.diff Antigen/Toxin Ag neg : Tox neg (NEG : NEG); CDIFF INTERNAL NEG CONTROL White Background (WHITE BKGD); STOOL CONSISTENCY Liquid/Semi-Solid
== END 2024-02-04 05:59 | disposition home or self-care (01) ==
LOC: ER 00:17
DX: K52.3 Indeterminate colitis (principal)
CPT/HCPCS: 96365; 96367; 96361; 87045; 85025; 81001; 36415; 87177; 84703; 87046; 87209; 87324; 83690; 80053; 87425; 74177; 76856; 96375; 96372; 99284; Q9967; J2550; J0500; J3010; J1100; J2405; J0744; J7030 ×2

== ENCOUNTER 2024-03-24 20:25 | Emergency (ER) | payer SELFPAY ==
[2024-03-24] MEDS ORDERED: ONDANSETRON 4 MG/2 ML VIAL ONE (20:44)
[2024-03-24] MEDS ORDERED: MORPHINE 4 MG/ML SYR ONE (20:45)
[2024-03-24] MEDS ORDERED: NA CHLORIDE 0.9% 1,000 ML ONE (20:45)
[2024-03-24 20:51] LABS: Absolute Eosinophils 0.2 K/uL (0-0.5); Hemoglobin 14.2 g/dL (12.0-15.0); Nucleated Red Blood Cells % 0.1 % (0-0)
[2024-03-24 20:53] LABS: Specific Gravity 1.019 (1.005-1.030)
[2024-03-24 20:54] LABS: Absolute Basophils 0.1 K/uL (0-0.5); Absolute Lymphocytes (CBC) 4.6 K/uL (0.7-4.9); Absolute Monocytes 0.8 K/uL (0.1-1.3); Absolute Neutrophil 6.6 K/uL (1.8-8.0); Basophils % 0.7 % (0-1.3); Eosinophils % 1.3 % (0-4.4); Hematocrit 41.8 % (36.0-45.0); Lymphocytes % 37.6 % (15.3-44.8); MCH 28.7 pg (27.0-35.0); MCHC 34.1 g/dL (32.0-36.0); MCV 84.1 fL (80-100); MPV 8.4 fL (7.6-11.3); Monocytes % 6.2 % (3.3-12.3); Neutrophils % 54.2 % (41.7-73.7); Platelets 333 thou/uL (152-406); RBC Red Blood Cell Count 4.97 M/uL (3.86-4.86); Red Cell Distribution Width 13.8 % (12.1-15.2); Specific Gravity 1.019 (1.005-1.030); Sqamous Epithelial <5 /HPF (None Seen); Urine Bacteria None Seen /HPF (<20); Urine Bilirubin NEGATIVE (Negative); Urine Blood 3+ (Negative); Urine Clarity Extremely Turbid (Clear); Urine Color Light-Yellow (Yellow); Urine Crystals Unidentified Few /HPF (None Seen); Urine Culture Reflex Order NOT NEEDED; Urine Glucose NEGATIVE (Negative); Urine Ketones NEGATIVE (Negative); Urine Microscopic Reflex YN ORDER UMIC; Urine Mucus Slight /HPF (None Seen); Urine Nitrite NEGATIVE (Negative); Urine Protein NEGATIVE (Negative); Urine Urobilinogen Normal (Normal); Urine WBC <5 /HPF (<5); Urine WBC Clump Rare /HPF (None Seen); Urine Yeast (Budding) Trace /HPF (None Seen)
[2024-03-24 21:06] LABS: Albumin 3.7 g/dL (3.4-5.0); Albumin/Globulin Ratio 0.9 (1.1-1.8); Anion Gap 7.8 mEq/L (5.0-15.0); Bilirubin Total 0.3 mg/dL (0.2-1.0); Potassium 3.8 mEq/L (3.5-5.1); Protein, Total 7.7 g/dL (6.4-8.2)
[2024-03-24] MEDS ORDERED: KETOROLAC 30 MG/ML INJ ONE (21:26)
[2024-03-24] MEDS ORDERED: HYDROCODONE/APAP 5/325 MG TAB ONE (22:42)
--- NOTE | 2024-03-24 22:42 | EDPHYS ---
Physician Documentation [facility] Name: Dana Patton Age: 23 yrs Sex: Female : 2000 Arrival Date: 03/24/2024 Time: 20:25 Bed 7 Private MD: ED Physician Tushar Maloney HPI: 03/24 23:03 This 23 yrs old Female presents to ER via Wheelchair with complaints of dr5 Abdominal Pain. 23:03 The patient presents with abdominal pain in the lower abdomen. Onset: The dr5 symptoms/episode began/occurred today. The patient has experienced similar episodes in the past, several times. Patient is a 23-year-old female with history of depression, lupus, PCOS, endometriosis coming in with lower pelvic pressure that is consistent with her previous episodes of endometriosis. Patient had MRI completed on March 14 that revealed endometriosis with adhesions of the lower intestine to the back of her uterus. Patient has plans to have surgery completed by physician in [place]. Surgery was scheduled in August. MRI reviewed in ER with patient.. RN COMMUNITY: 20:47 LMP 02/16/2024, unknown cm10 Historical: - Allergies: 20:44 Adhesives; cm10 - PMHx: 20:44 depressive disorder; Lupus erythematosus; PCOS; Endometriosis of vagina; cm10 - PSHx: 20:44 ectopic lap.; R wrist SX; cm10 - Immunization history:: Adult Immunizations up to date. - Infectious Disease History:: Denies. - Social history:: Smoking status: Reported history of juuling and/or vaping. ROS: 23:03 Constitutional: as per hpi dr5 Exam: 23:03 Constitutional: This is a well developed, well nourished patient who is awake, alert, dr5 and in no acute distress. Head/Face: Normocephalic, atraumatic. Eyes: Pupils equal round and reactive to light, extra-ocular motions intact. Lids and lashes normal. Conjunctiva and sclera are non-icteric and not injected. Cornea within normal limits. Periorbital areas with no swelling, redness, or edema. ENT: Nares patent. No nasal discharge, no septal abnormalities noted. Tympanic membranes are normal and external auditory canals are clear. Oropharynx with no redness, swelling, or masses, exudates, or evidence of obstruction, uvula midline. Mucous membranes moist. Chest/axilla: Normal chest wall appearance and motion. Nontender with no deformity. No lesions are appreciated. Cardiovascular: Regular rate and rhythm with a normal S1 and S2. Normal PMI, no JVD. No pulse deficits. Respiratory: Lungs have equal breath sounds bilaterally, clear to auscultation. No rales, rhonchi or wheezes noted. No increased work of breathing, no retractions or nasal flaring. Back: No spinal tenderness. No costovertebral tenderness. Full range of motion. Skin: Warm, dry with normal turgor. Normal color with no rashes, no lesions, and no evidence of cellulitis. 23:03 MS/ Extremity: Pulses equal, no cyanosis. Neurovascular intact. Full, normal range of motion. Neuro: Awake and alert, GCS 15, oriented to person, place, time, and situation. Cranial nerves II-XII grossly intact. Motor strength 5/5 in all extremities. Sensory grossly intact. Cerebellar exam normal. Normal gait. 23:03 Abdomen/GI: Palpation: mild abdominal tenderness, in the suprapubic area, Vital Signs: 20:42 BP 141 / 93; Pulse 84; Resp 17; Temp 98.9(O); Pulse Ox 100% on R/A; Weight 87.09 kg; cm10 Height 5 ft. 5 in. ; Pain 10/10; 21:06 BP 134 / 74; Pulse 91; Resp 18; Temp 98.9; Pulse Ox 97% ; Pain 3/10; bm8 22:33 BP 101 / 68; Pulse 80; Resp 16; Temp 98.8; Pulse Ox 100% ; Pain 6/10; bm8 20:42 Body Mass Index 31.95 (87.09 kg, 165.1 cm) cm10 20:42 Pain Scale: Adult cm10 21:06 Pain Scale: Adult bm8 22:33 Pain Scale: Adult bm8 Clarissa Coma Score: 20:44 Eye Response: spontaneous(4). Motor Response: obeys commands(6). Verbal Response: bm8 oriented(5). Total: 15. 21:06 Eye Response: spontaneous(4). Motor Response: obeys commands(6). Verbal Response: bm8 oriented(5). Total: 15. 22:33 Eye Response: spontaneous(4). Motor Response: obeys commands(6). Verbal Response: bm8 oriented(5). Total: 15. MDM: 20:29 Medical Screening Exam initiated dr5 23:03 Differential diagnosis: Endometriosis, Endometriosis, PCOS, . Data reviewed: dr5 vital signs, nurses notes, lab test result(s). 03/24 20:34 Order name: CBC with Diff; Complete Time: 21:07 dr5 03/24 20:34 Order name: CMP; Complete Time: 21:07 dr5 03/24 20:34 Order name: Lipase; Complete Time: 21:07 dr5 03/24 20:34 Order name: Test, Urine; Complete Time: 20:54 dr5 03/24 20:34 Order name: Urinalysis w/ reflexes; Complete Time: 21:07 dr5 03/24 20:49 Order name: Test, Serum; Complete Time: 21:07 bm8 03/24 20:34 Order name: IV Saline Lock; Complete Time: 20:49 dr5 03/24 20:34 Order name: Labs collected and sent; Complete Time: 20:49 dr5 Administered Medications: 20:48 Drug: NS 0.9% IV 1000 ml IV at 1 bolus Per protocol; to be given as a bolus over 60 bm8 minutes Route: IV; Rate: 1 bolus; Site: right antecubital; 22:35 Follow up: Response: No adverse reaction; IV Status: Completed infusion; IV Intake: bm8 1000ml 20:49 Drug: Ondansetron IVP 4 mg IVP once; over 2 minutes Route: IVP; Site: right antecubital;bm8 22:35 Follow up: Response: No adverse reaction bm8 20:49 Drug: morphine IVP or IV 4 mg IVP once over 4 mins Route: IVP; Infused Over: 4 mins; bm8 Site: right antecubital; 22:35 Follow up: Response: No adverse reaction bm8 21:07 Not Given (Physician Discretion): [id number] mg IM once dr5 21:33 Drug: Ketorolac IVP 15 mg IVP once Route: IVP; Site: right antecubital; bm8 22:35 Follow up: Response: No adverse reaction bm8 Disposition: 03/25 02:58 Co-signature as Attending Physician, Tushar Maloney MD I agree with the assessment sp4 and plan of care. I reviewed the patient's care provided by the Advanced Practice Provider and agree with the diagnosis and treatment plan. Disposition Summary: 03/24/24 22:42 Discharge Ordered Notes: Location: Home dr5 Condition: Stable dr5 Diagnosis - Endometriosis, unspecified dr5 Followup: dr5 - With: Emergency Department - When: As needed - Reason: Worsening of condition Followup: dr5 - With: Private Physician - When: 1 - 2 days - Reason: Recheck today's complaints, Continuance of care, Re-evaluation by your physician Discharge Instructions: - Discharge Summary Sheet dr5 - Endometriosis dr5 Forms: - Work release form dr5 - Medication Reconciliation Form dr5 - Antibiotic Education dr5 - Prescription Opioid Use dr5 - Patient Portal Instructions dr5 - Leadership Thank You Letter dr5 Prescriptions: - Tramadol 50 mg Oral Tablet - take 1 tablet ORAL route every 8 hours as needed; 12 tablet; Refills: 0, dr5 Product Selection Permitted Signatures: Dispatcher [employer] EDMS Tushar Maloney MD MD sp4 Izabel Rowe RN RN cm10 Bin Griffith RN RN bm8 Power Pulido, CRANIOLOGIST-C CRANIOLOGIST-Cdr5 Corrections: (The following items were deleted from the chart) 03/24 20:35 20:34 CBC+H.LAB.BRZ ordered. EDMS EDMS 20:35 20:34 COMPREHENSIVE METABOLIC PANEL+C.LAB.BRZ ordered. EDMS EDMS 20:35 20:34 LIPASE+C.LAB.BRZ ordered. EDMS EDMS 20:35 20:34 Test, Urine+UC.LAB.BRZ ordered. EDMS EDMS 20:35 20:34 Urinalysis+U.LAB.BRZ ordered. EDMS EDMS
--- NOTE | 2024-03-24 22:42 | ER ---
Nurse's Notes [facility] Name: Dana Patton Age: 23 yrs Sex: Female : 2000 Arrival Date: 03/24/2024 Time: 20:25 Bed 7 Private MD: Diagnosis: Endometriosis, unspecified Presentation: 03/24 20:42 Chief complaint: Patient states: Was [place] and started having lower abdominal pain and cm10 pressure. she states that she feels pressure on her vagina. Coronavirus screen: Client denies travel out of the [place] in the last 14 days. Ebola Screen: Patient denies travel to an Ebola-affected area in the 21 days before illness onset. Initial Sepsis Screen: Does the patient meet any 2 criteria? No. Patient's initial sepsis screen is negative. Does the patient have a suspected source of infection? No. Patient's initial sepsis screen is negative. Risk Assessment: Do you want to hurt yourself or someone else? Patient reports no desire to harm self or others. Onset of symptoms was March 24, 2024. 20:42 Method Of Arrival: Wheelchair cm10 20:42 Acuity: DOMINGO 3 cm10 Triage Assessment: 20:44 General: Appears uncomfortable, Behavior is crying, restless. Neuro: No deficits noted. cm10 Level of Consciousness is awake, alert, Oriented to person, place, time, situation, Appropriate for age. Respiratory: No deficits noted. Airway is patent Respiratory effort is even, unlabored, Respiratory pattern is regular, symmetrical. 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 - Infectious Disease History:: Denies. - Social history:: Smoking status: Reported history of juuling and/or vaping. Screenin:44 [facility] ED Fall Risk Assessment (Adult) History of falling in the last 3 months, bm8 including since admission No falls in past 3 months (0 pts) Confusion or Disorientation No (0 pts) Intoxicated or Sedated No (0 pts) Impaired Gait No (0 pts) Mobility Assist Device Used No (0 pt) Altered Elimination No (0 pt) Score/Fall Risk Level 0 - 2 = Low Risk Oriented to surroundings, Maintained a safe environment, Educated pt \T\ family on fall prevention, incl call for assistance when getting out of bed, Assessed \T\ reinforced patient's understanding of fall precautions, Hourly rounding (assess needs \T\ fall precautionary measures) done, Used ambulatory aids as needed (educated on \T\ assisted with), Used gait belt as appropriate. Abuse screen: Denies threats or abuse. Nutritional screening: No deficits noted. Tuberculosis screening: No symptoms or risk factors identified. Assessment: 20:44 General: Appears distressed, uncomfortable, Behavior is calm, cooperative, appropriate bm8 for age. Pain: Complains of pain in groin and suprapubic area Pain currently is 10 out of 10 on a pain scale. Quality of pain is described as aching, crampy, crushing, heavy. Neuro: No deficits noted. Level of Consciousness is awake, alert, obeys commands, Oriented to person, place, time, situation, Appropriate for age. Cardiovascular: Denies chest pain, Capillary refill < 3 seconds in bilateral fingers. Respiratory: Airway is patent Respiratory effort is even, unlabored, Respiratory pattern is regular, symmetrical. GI: Abdomen is flat, non-distended, Last BM at 17:00. Bowel sounds present X 4 quads. Abdomen is tender to palpation Reports cramping. : Reports cramping, in suprapubic area. EENT: No deficits noted. No signs and/or symptoms were reported regarding the EENT system. Derm: No deficits noted. No signs and/or symptoms reported regarding the dermatologic system. 21:06 Reassessment: Patient appears in no apparent distress at this time. Patient and/or bm8 family updated on plan of care and expected duration. Pain level reassessed. Patient is alert, oriented x 3, equal unlabored respirations, skin warm/dry/pink. Patient states feeling better. Patient states symptoms have improved. Pain: Pain currently is 3 out of 10 on a pain scale. 21:33 Reassessment: PT REPORTS 6/10 PAIN. PROVIDER INFORMED AND NEW ORDERS RECIEVD. Pain: bm8 Pain currently is 6 out of 10 on a pain scale. 22:33 Reassessment: Patient appears in no apparent distress at this time. Patient and/or bm8 family updated on plan of care and expected duration. Pain level reassessed. Patient is alert, oriented x 3, equal unlabored respirations, skin warm/dry/pink. Pain: Pain currently is 6 out of 10 on a pain scale. Vital Signs: 20:42 BP 141 / 93; Pulse 84; Resp 17; Temp 98.9(O); Pulse Ox 100% on R/A; Weight 87.09 kg; cm10 Height 5 ft. 5 in. ; Pain 10/10; 21:06 BP 134 / 74; Pulse 91; Resp 18; Temp 98.9; Pulse Ox 97% ; Pain 3/10; bm8 22:33 BP 101 / 68; Pulse 80; Resp 16; Temp 98.8; Pulse Ox 100% ; Pain 6/10; bm8 20:42 Body Mass Index 31.95 (87.09 kg, 165.1 cm) cm10 20:42 Pain Scale: Adult cm10 21:06 Pain Scale: Adult bm8 22:33 Pain Scale: Adult bm8 Clayton Coma Score: 20:44 Eye Response: spontaneous(4). Motor Response: obeys commands(6). Verbal Response: bm8 oriented(5). Total: 15. 21:06 Eye Response: spontaneous(4). Motor Response: obeys commands(6). Verbal Response: bm8 oriented(5). Total: 15. 22:33 Eye Response: spontaneous(4). Motor Response: obeys commands(6). Verbal Response: bm8 oriented(5). Total: 15. ED Course: 20:26 Patient arrived in ED. im 20:29 Power Pulido FNP-C is PHCP. dr5 20:29 Tushar Maloney MD is Attending Physician. dr5 20:42 DALLIN GARCIA RN is Primary Nurse. dd2 20:44 Triage completed. cm10 20:44 Patient has correct armband on for positive identification. Bed in low position. Call bm8 light in reach. Side rails up X 1. Adult w/ patient. Client placed on continuous cardiac and pulse oximetry monitoring. NIBP monitoring applied. Pulse ox on. NIBP on. Door closed. Noise minimized. Warm blanket given. Pillow given. Verbal reassurance given. Head of bed elevated. 20:44 No provider procedures requiring assistance completed. Initial lab(s) drawn, by , bm8 sent to lab. Urine collected: clean catch specimen, clear. Inserted saline lock: 20 gauge in right antecubital area, using aseptic technique. Blood collected. Flushed with 10 mL NS. Patient maintains SpO2 saturation greater than 95% on room air. 20:45 Arm band placed on right wrist. Patient placed in an exam room, on a stretcher. cm10 22:56 Provided Education on: post er care. bm8 22:56 IV discontinued, intact, bleeding controlled, No redness/swelling at site. Pressure bm8 dressing applied. Administered Medications: 20:48 Drug: NS 0.9% IV 1000 ml IV at 1 bolus Per protocol; to be given as a bolus over 60 bm8 minutes Route: IV; Rate: 1 bolus; Site: right antecubital; 22:35 Follow up: Response: No adverse reaction; IV Status: Completed infusion; IV Intake: bm8 1000ml 20:49 Drug: Ondansetron IVP 4 mg IVP once; over 2 minutes Route: IVP; Site: right antecubital;bm8 22:35 Follow up: Response: No adverse reaction bm8 20:49 Drug: morphine IVP or IV 4 mg IVP once over 4 mins Route: IVP; Infused Over: 4 mins; bm8 Site: right antecubital; 22:35 Follow up: Response: No adverse reaction bm8 21:07 Not Given (Physician Discretion): [id number] mg IM once dr5 21:33 Drug: Ketorolac IVP 15 mg IVP once Route: IVP; Site: right antecubital; bm8 22:35 Follow up: Response: No adverse reaction bm8 Medication: 20:44 VIS not applicable for this client. bm8 Intake: 22:35 IV: 1000ml; Total: 1000ml. bm8 Outcome: 22:42 Discharge ordered by . dr5 22:56 Discharged to home ambulatory, with family, bm8 22:56 Condition: stable 22:56 Discharge instructions given to patient, family, Instructed on discharge instructions, follow up and referral plans. medication usage, safety practices, Demonstrated understanding of instructions, follow-up care, medications, Prescriptions given X 1, 22:57 Patient left the ED. bm8 Signatures: Azul Sutherland Clarissa, RN RN cm10 Bin Griffith, RN RN bm8 DALLIN GARCIA, RN RN dd2 Power Pulido, SALES REPRESENTATIVE CONSULTANT-C SALES REPRESENTATIVE CONSULTANT-Cdr5
[2024-03-24] MEDS ORDERED: ONDANSETRON 4 MG (ODT) TAB ONE (22:47)
[2024-03-24 23:07] VITALS: BP 101/68; TEMP 98.8; O2SAT 100
== END 2024-03-24 22:57 | disposition home or self-care (01) ==
LOC: ER 20:25
DX: N80.9 Endometriosis, unspecified (principal)
CPT/HCPCS: 36415; 80053; 81001; 81025; 83690; 84703; 85025; 96361; 96374; 96375; 99284; J2405; J7030; Q0162

== ENCOUNTER 2024-04-21 20:36 | Emergency (ER) | payer BC ==
[2024-04-21] MEDS ORDERED: MORPHINE 4 MG/ML SYR ONE (22:15)
[2024-04-21] MEDS ORDERED: ONDANSETRON 4 MG (ODT) TAB ONE (22:15)
--- NOTE | 2024-04-21 22:45 | EDPHYS ---
Physician Documentation [facility] Name: Dana Patton Age: 23 yrs Sex: Female : 2000 Arrival Date: 04/21/2024 Time: 20:36 Bed 16 Private MD: LYNSEY Physician Rashawn Villalpando HPI: 04/21 22:11 This 23 yrs old Female presents to ER via Wheelchair with complaints of Pelvic Pain. kb 22:11 Pt is a 23 year old female who presents for pain to lower abd that started at 1830 kb today. States she has a history of endometriosis and is scheduled to have surgery on 06/11/24. States her tramadol did not work tonight. Reports the pain is the same as normal. States she is supposed to start her period soon so she believes that is why she is having a flareup today. . 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 - Infectious Disease History:: Denies. - Social history:: Smoking status: Patient denies any tobacco usage or history of. ROS: 22:10 Constitutional: As per HPI kb Exam: 22:10 Constitutional: This is a well developed, well nourished patient who is awake, alert, kb and in no acute distress. Head/Face: Normocephalic, atraumatic. ENT: Moist Mucous membranes Cardiovascular: Regular rate Respiratory: Respirations even and unlabored. No increased work of breathing. Talking in full sentences Abdomen/GI: Soft, non-tender. No distention Skin: Warm, dry with normal turgor. Normal color. MS/ Extremity: Pulses equal, no cyanosis. Neurovascular intact. Full, normal range of motion. Neuro: Awake and alert, GCS 15, oriented to person, place, time, and situation. Vital Signs: 20:58 BP 136 / 104; Pulse 119; Resp 18; Temp 97.8; Pulse Ox 99% ; Weight 88.9 kg; Height 5 bm8 ft. 5 in. ; Pain 10/10; 23:31 BP 117 / 62; Pulse 98; Resp 18; Pulse Ox 100% on R/A; al5 20:58 Body Mass Index 32.62 (88.90 kg, 165.1 cm) bm8 20:58 Pain Scale: Adult bm8 MDM: 20:42 Medical Screening Exam initiated kb 22:13 Differential diagnosis: endometriosis, ovarian cyst. Data reviewed: vital signs, nurses kb notes. Test considered but Not performed: Labs: cbc, cmp considered but pain is similar to previous episodes of endometriosis, is chronic. Pt is afebrile and tolerating po intake. Ultrasound US considered but pain is similar to previous episodes of endometriosis. . Historians other than the Patient: Spouse/Significant Other: significant other. Counseling: I had a detailed discussion with the patient and/or guardian regarding the historical points, exam findings, and any diagnostic results supporting the discharge/admit diagnosis, the need for outpatient follow up, an OB/Gyne specialist, to return to the emergency department if symptoms worsen or persist or if there are any questions or concerns that arise at home. Administered Medications: 22:31 Drug: morphine IM 4 mg IM once Route: IM; Site: right vastus lateralis; bm8 23:33 Follow up: Response: No adverse reaction; Pain is decreased al5 22:32 Drug: Ondansetron Oral Disintegrating Tablet Oral Disintegrating Tablet 4 mg PO once bm8 Route: PO; 23:33 Follow up: Response: No adverse reaction al5 Disposition Summary: 04/21/24 22:45 Discharge Ordered Notes: Location: Home kb Condition: Stable kb Diagnosis - Endometriosis, unspecified kb Followup: kb - With: Private Physician - When: 2 - 3 days - Reason: Recheck today's complaints, Continuance of care, Re-evaluation by your physician Followup: kb - With: Emergency Department - When: As needed - Reason: Worsening of condition Discharge Instructions: - Discharge Summary Sheet kb - Endometriosis kb Forms: - Medication Reconciliation Form kb - Antibiotic Education kb - Prescription Opioid Use kb - Patient Portal Instructions kb - Leadership Thank You Letter kb - Work release form vc1 Signatures: Tisha Morales FNP-C FNP-Bin Lee RN RN bm8 Langhorst, Candi RN al5
--- NOTE | 2024-04-21 22:45 | ER ---
Nurse's Notes [facility] Name: Dana Patton Age: 23 yrs Sex: Female : 2000 Arrival Date: 04/21/2024 Time: 20:36 Bed 16 Private MD: Diagnosis: Endometriosis, unspecified Presentation: 04/21 20:58 Chief complaint: Patient states: Pelvic pain from endometreosis started around 1900 bm8 this evening. Pt has a scheduled sx in may. Coronavirus screen: Vaccine status: Patient reports receiving the 2nd dose of the covid vaccine. Ebola Screen: Patient negative for fever greater than or equal to 101.5 degrees Fahrenheit, and additional compatible Ebola Virus Disease symptoms Patient denies exposure to infectious person. Patient denies travel to an Ebola-affected area in the 21 days before illness onset. No symptoms or risks identified at this time. Initial Sepsis Screen: Does the patient meet any 2 criteria? No. Patient's initial sepsis screen is negative. Does the patient have a suspected source of infection? No. Patient's initial sepsis screen is negative. Risk Assessment: Do you want to hurt yourself or someone else? Patient reports no desire to harm self or others. Onset of symptoms was April 21, 2024 at 19:00. 20:58 Method Of Arrival: Wheelchair bm8 20:58 Acuity: DOMINGO 3 bm8 Triage Assessment: 20:59 General: Appears distressed, uncomfortable, Behavior is cooperative, appropriate for bm8 age, crying. Pain: Complains of pain in pelvis Pain currently is 10 out of 10 on a pain scale. EENT: No deficits noted. No signs and/or symptoms were reported regarding the EENT system. Neuro: No deficits noted. Level of Consciousness is awake, alert, obeys commands, Oriented to person, place, time, situation, Appropriate for age. Cardiovascular: Denies chest pain, Capillary refill < 3 seconds in bilateral fingers Patient's skin is warm and dry. Respiratory: Airway is patent Respiratory effort is even, unlabored, Respiratory pattern is regular, symmetrical, Breath sounds are clear bilaterally. : Reports pelvic pain that started around 1900 with hx of endometriosis. 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 - Infectious Disease History:: Denies. - Social history:: Smoking status: Patient denies any tobacco usage or history of. Screenin:32 [facility] ED Fall Risk Assessment (Adult) History of falling in the last 3 months, al5 including since admission No falls in past 3 months (0 pts) Confusion or Disorientation No (0 pts) Intoxicated or Sedated No (0 pts) Impaired Gait No (0 pts) Mobility Assist Device Used No (0 pt) Altered Elimination No (0 pt) Score/Fall Risk Level 0 - 2 = Low Risk Oriented to surroundings, Maintained a safe environment, Hourly rounding (assess needs \T\ fall precautionary measures) done. Abuse screen: Denies threats or abuse. Denies injuries from another. Nutritional screening: No deficits noted. Tuberculosis screening: No symptoms or risk factors identified. Assessment: 23:31 General: Appears in no apparent distress. comfortable. Pain: Complains of pain in al5 pelvis Pain currently is 4 out of 10 on a pain scale. Neuro: Level of Consciousness is awake, alert, obeys commands, Oriented to person, place, time, situation. Cardiovascular: Capillary refill < 3 seconds Patient's skin is warm and dry. Respiratory: Airway is patent Respiratory effort is even, unlabored, Respiratory pattern is regular, symmetrical. GI: No signs and/or symptoms were reported involving the gastrointestinal system. : Reports pain pelvic. EENT: No signs and/or symptoms were reported regarding the EENT system. Derm: Skin is intact, is healthy with good turgor, Skin is pink, warm \T\ dry. normal. Musculoskeletal: No signs and/or symptoms reported regarding the musculoskeletal system. Vital Signs: 20:58 BP 136 / 104; Pulse 119; Resp 18; Temp 97.8; Pulse Ox 99% ; Weight 88.9 kg; Height 5 bm8 ft. 5 in. ; Pain 10/10; 23:31 BP 117 / 62; Pulse 98; Resp 18; Pulse Ox 100% on R/A; al5 20:58 Body Mass Index 32.62 (88.90 kg, 165.1 cm) bm8 20:58 Pain Scale: Adult bm8 ED Course: 20:38 Patient arrived in ED. gm2 20:41 Tisha Morales FNP-C is [facility]. kb 20:41 Rashawn Villalpando MD is Attending Physician. kb 20:59 Triage completed. bm8 20:59 Arm band placed on left wrist. bm8 23:28 Candi Frank, RN is Primary Nurse. al5 23:32 Patient has correct armband on for positive identification. Bed in low position. Call al5 light in reach. Side rails up X 1. Provided Education on: discharge follow up. 23:33 No provider procedures requiring assistance completed. Patient did not have IV access al5 during this emergency room visit. Administered Medications: 22:31 Drug: morphine IM 4 mg IM once Route: IM; Site: right vastus lateralis; bm8 23:33 Follow up: Response: No adverse reaction; Pain is decreased al5 22:32 Drug: Ondansetron Oral Disintegrating Tablet Oral Disintegrating Tablet 4 mg PO once bm8 Route: PO; 23:33 Follow up: Response: No adverse reaction al5 Medication: 23:33 VIS not applicable for this client. al5 Outcome: 22:45 Discharge ordered by . kb 23:33 Discharged to home ambulatory, with family, al5 23:33 Condition: good 23:33 Discharge instructions given to patient, Instructed on discharge instructions, follow up and referral plans. Demonstrated understanding of instructions, follow-up care, 23:33 Patient left the ED. al5 Signatures: Tisha Morales FNP-C FNP-Vannesa Jacobs 2 Bin Griffith, RN RN bm8 Candi Frank, CELINE RN al5
[2024-04-22 00:21] VITALS: TEMP 97.8
[2024-04-22 00:23] VITALS: BP 117/62; O2SAT 100
== END 2024-04-21 23:33 | disposition home or self-care (01) ==
LOC: ER 20:36
DX: N80.9 Endometriosis, unspecified (principal)
CPT/HCPCS: 96372; 99284; Q0162

== ENCOUNTER 2024-06-23 16:38 | Emergency (ER) | payer BC ==
[2024-06-23] MEDS ORDERED: IBUPROFEN 400 MG TAB ONE (18:08)
[2024-06-23] MEDS ORDERED: HYDROCODONE/APAP 5/325 MG TAB ONE (18:08)
--- NOTE | 2024-06-23 19:31 | RAD REPORT ---
EXAMINATION: US PELVIS TRANSVAGINAL WITH DOPPLER CLINICAL INDICATION: Female 24 years old. Possible IUD Migration TECHNIQUE: Real-time ultrasonography of the pelvis was performed transvaginally. Color and spectral D oppler evaluation of the ovaries was performed. COMPARISON: 02/04/2024 FINDINGS: UTERUS AND CERVIX: The uterus measures 7.7 x 4.5 x 4.1 cm (cervix to fundus x AP x transverse). The u terus is normal. No masses seen The endometrium is normal, 2 mm in thickness. IUD appears in the lower uterine segment/cervix. RIGHT OVARY: Normal. The right ovary measures 4.5 x 4.0 cm. 4 cm cystic lesion may represent ovarian cyst or endometrioma. Normal color and spectral Doppler evaluation of the right ovary.. LEFT OVARY: Normal. The left ovary measures 3.4 x 1.5 cm. Normal color and spectral Doppler evaluation of the left ovary.. FREE FLUID: No free fluid. IMPRESSION: IUD is in the lower uterine segment/cervix. 4 cm cystic lesion right ovary likely ovarian cyst or endometrioma. Follow-up pelvic sonography in 6 weeks would be suggested.
--- NOTE | 2024-06-23 19:38 | ER ---
Nurse's Notes [facility] Name: Dana Patton Age: 24 yrs Sex: Female : 2000 Arrival Date: 06/23/2024 Time: 16:38 Bed 19 Private MD: Diagnosis: Other ovarian cysts Presentation: 06/23 16:41 Chief complaint: Patient states: "I'm wanting to make sure my IUD is in the right ss place. I've been having such bad pain ever since they put it in 4 weeks ago during my endometriosis excision." Pt reports she is scheduled to have IUD removed on . Coronavirus screen: Client denies travel out of the [place] in the last 14 days. Ebola Screen: Patient denies exposure to infectious person. Patient denies travel to an Ebola-affected area in the 21 days before illness onset. Initial Sepsis Screen: Does the patient meet any 2 criteria? No. Patient's initial sepsis screen is negative. Does the patient have a suspected source of infection? No. Patient's initial sepsis screen is negative. Risk Assessment: Do you want to hurt yourself or someone else? Patient reports no desire to harm self or others. Onset of symptoms was May 2024. 16:41 Method Of Arrival: Ambulatory ss 16:41 Acuity: DOMINGO 3 ss FARM HAND: 19:36 LMP N/A - Irregular menses, Not al5 Historical: - Allergies: 16:57 Adhesives; ss - Home Meds: 16:57 tramadol 50 mg Oral tablet 1 tab daily [Active]; ss - PMHx: 16:57 depressive disorder; Endometriosis of vagina; Lupus erythematosus; PCOS; ss - PSHx: 16:57 ectopic lap.; R wrist SX; ss - Immunization history:: Adult Immunizations up to date. - Infectious Disease History:: Denies. - Social history:: Smoking status: Patient denies any tobacco usage or history of. Screenin:00 [facility] ED Fall Risk Assessment (Adult) History of falling in the last 3 months, ld1 including since admission No falls in past 3 months (0 pts) Confusion or Disorientation No (0 pts) Intoxicated or Sedated No (0 pts) Impaired Gait No (0 pts) Mobility Assist Device Used No (0 pt) Altered Elimination No (0 pt) Score/Fall Risk Level 0 - 2 = Low Risk Oriented to surroundings, Hourly rounding (assess needs \\T\\ fall precautionary measures) done. Abuse screen: Denies threats or abuse. Denies injuries from another. Nutritional screening: No deficits noted. Tuberculosis screening: No symptoms or risk factors identified. Assessment: 17:00 General: Appears in no apparent distress. comfortable, Behavior is calm, cooperative, ld1 appropriate for age. Pain: Denies pain. Neuro: Level of Consciousness is awake, alert, obeys commands, Oriented to person, place, time, situation. Cardiovascular: Capillary refill < 3 seconds Patient's skin is warm and dry. Respiratory: Airway is patent Respiratory effort is even, unlabored. GI: Abdomen is flat, non-distended. : No signs and/or symptoms were reported regarding the genitourinary system. EENT: No signs and/or symptoms were reported regarding the EENT system. Derm: No signs and/or symptoms reported regarding the dermatologic system. Musculoskeletal: No signs and/or symptoms reported regarding the musculoskeletal system. 18:15 Reassessment: Called imaging - quality tech on the way to facility. ld1 18:43 Reassessment: Patient appears in no apparent distress at this time. No changes from ld1 previously documented assessment. Patient and/or family updated on plan of care and expected duration. Pain level reassessed. Patient is alert, oriented x 3, equal unlabored respirations, skin warm/dry/pink. 19:33 General: Appears in no apparent distress. comfortable, Behavior is calm, cooperative. al5 Pain: Denies pain. Neuro: Level of Consciousness is awake, alert, obeys commands, Oriented to person, place, time, situation. Cardiovascular: Capillary refill < 3 seconds Patient's skin is warm and dry. Respiratory: Airway is patent Respiratory effort is even, unlabored, Respiratory pattern is regular, symmetrical. GI: No signs and/or symptoms were reported involving the gastrointestinal system. : No signs and/or symptoms were reported regarding the genitourinary system. EENT: No signs and/or symptoms were reported regarding the EENT system. Derm: Skin is intact, is healthy with good turgor, Skin is pink, warm \\T\\ dry. normal. Musculoskeletal: No signs and/or symptoms reported regarding the musculoskeletal system. Vital Signs: 16:41 BP 132 / 90; Pulse 110; Resp 15; Temp 98.7(O); Pulse Ox 99% on R/A; Weight 86.18 kg; ss Height 5 ft. 5 in. ; Pain 8/10; 18:43 BP 129 / 88; Pulse 105; Resp 18; Pulse Ox 99% on R/A; ld1 19:34 BP 133 / 83; Pulse 79; Resp 16; Pulse Ox 96% ; al5 16:41 Body Mass Index 31.62 (86.18 kg, 165.1 cm) ss 16:41 Pain Scale: Adult ss ED Course: 16:41 Patient arrived in ED. mr 16:45 Power Pulido FNP-C is PHCP. dr5 16:45 Randell Rolon MD is Attending Physician. dr5 16:57 Triage completed. ss 16:57 Arm band placed on right wrist. ss 17:00 Rosaura Melvin, CELINE is Primary Nurse. ld1 17:00 Patient has correct armband on for positive identification. Placed in gown. Bed in low ld1 position. Call light in reach. Side rails up X2. Pulse ox on. NIBP on. Door closed. Noise minimized. Warm blanket given. 17:00 No provider procedures requiring assistance completed. ld1 18:18 PHCP role handed off by Power Pulido FNP-C cp 18:18 Randell Dickerson PA is PHCP. cp 19:19 Transvaginal Study (probe) In Process Unspecified. EDMS 19:38 Provided Education on: discharge follow up. al5 19:40 Patient did not have IV access during this emergency room visit. al5 Administered Medications: 18:17 Drug: HYDROcodone-acetaminophen PO 5 mg-325 mg 2 tabs PO once Route: PO; ld1 19:39 Follow up: Response: No adverse reaction; Pain is decreased al5 20:18 Follow up: Response: No adverse reaction; Pain is decreased al5 18:17 Drug: Ibuprofen PO 800 mg PO once Route: PO; ld1 19:39 Follow up: Response: No adverse reaction; Pain is decreased al5 20:18 Follow up: Response: No adverse reaction; Pain is decreased al5 Medication: 17:00 VIS not applicable for this client. ld1 Outcome: 19:37 Discharge ordered by . cp 19:40 Discharged to home ambulatory, with family, al5 19:40 Condition: good 19:40 Discharge instructions given to patient, Instructed on discharge instructions, follow up and referral plans. medication usage, Demonstrated understanding of instructions, follow-up care, medications, Prescriptions given X 1, 20:19 Patient left the ED. al5 Signatures: Dispatcher [employer] EDNM Monet Syed, Reg Reg mr FineRuth, RN RN ss Randell Dickerson PA PA cp Sims, Lauren, RN RN ld1 Candi Frank RN RN al5 Power Pulido, RETAIL COMMISSION SALES ASSOCIATE-C RETAIL COMMISSION SALES ASSOCIATE-Cdr5 Corrections: (The following items were deleted from the chart) 20:20 20:18 Response: No adverse reaction; Pain is decreased al5 al5 20:20 20:18 Response: No adverse reaction; Pain is decreased al5 al5
--- NOTE | 2024-06-23 19:38 | EDPHYS ---
Physician Documentation [facility] Name: Dana Patton Age: 24 yrs Sex: Female : 2000 Arrival Date: 06/23/2024 Time: 16:38 Bed 19 Private MD: LYNSEY Physician Randell Rolon HPI: 06/23 18:06 This 24 yrs old Female presents to ER via Ambulatory with complaints of IUD dr5 problem. 18:06 Patient is a 24-year-old female with history of depression, endometriosis, lupus, PCOS dr5 that had surgery 4 weeks ago for PCOS. Patient reports that she is concerned that since her pain is continuing that her IUD might be out of place. Patient called her surgeon and was placed on tramadol, ibuprofen, and Tylenol and is post to have her IUD removed this . Patient denies vaginal discharge or or bleeding. When asked if she can feel the string, patient states she has never attempted and doesn't know what it feels like.. ACCESS RN: 19:36 LMP N/A - Irregular menses, Not al5 Historical: - Allergies: 16:57 Adhesives; ss - Home Meds: 16:57 tramadol 50 mg Oral tablet 1 tab daily [Active]; ss - PMHx: 16:57 depressive disorder; Endometriosis of vagina; Lupus erythematosus; PCOS; ss - PSHx: 16:57 ectopic lap.; R wrist SX; ss - Immunization history:: Adult Immunizations up to date. - Infectious Disease History:: Denies. - Social history:: Smoking status: Patient denies any tobacco usage or history of. ROS: 18:06 Constitutional: as per hpi dr5 Exam: 18:06 Constitutional: This is a well developed, well nourished patient who is awake, alert, dr5 and in no acute distress. Head/Face: Normocephalic, atraumatic. Eyes: Pupils equal round and reactive to light, extra-ocular motions intact. Lids and lashes normal. Conjunctiva and sclera are non-icteric and not injected. Cornea within normal limits. Periorbital areas with no swelling, redness, or edema. Chest/axilla: Normal chest wall appearance and motion. Nontender with no deformity. No lesions are appreciated. Cardiovascular: Regular rate and rhythm with a normal S1 and S2. Normal PMI, no JVD. No pulse deficits. Respiratory: Lungs have equal breath sounds bilaterally, clear to auscultation. No rales, rhonchi or wheezes noted. No increased work of breathing, no retractions or nasal flaring. Abdomen/GI: Soft, non-tender, non-distended Skin: Warm, dry with normal turgor. Normal color with no rashes, no lesions, and no evidence of cellulitis. MS/ Extremity: Pulses equal, no cyanosis. Neurovascular intact. Full, normal range of motion. Neuro: Awake and alert, GCS 15, oriented to person, place, time, and situation. Cranial nerves II-XII grossly intact. Motor strength 5/5 in all extremities. Sensory grossly intact. Cerebellar exam normal. Normal gait. Vital Signs: 16:41 BP 132 / 90; Pulse 110; Resp 15; Temp 98.7(O); Pulse Ox 99% on R/A; Weight 86.18 kg; ss Height 5 ft. 5 in. ; Pain 8/10; 18:43 BP 129 / 88; Pulse 105; Resp 18; Pulse Ox 99% on R/A; ld1 19:34 BP 133 / 83; Pulse 79; Resp 16; Pulse Ox 96% ; al5 16:41 Body Mass Index 31.62 (86.18 kg, 165.1 cm) ss 16:41 Pain Scale: Adult ss MDM: 16:45 Medical Screening Exam initiated dr5 18:08 Transition of care: After a detail discussion of the patient's case, care is dr5 transferred to Randell ROSADO. 19:36 Data reviewed: vital signs, nurses notes, radiologic studies, ultrasound, and as a cp result, I will discharge patient. 06/23 16:52 Order name: Transvaginal Study (probe); Complete Time: 19:32 dr5 06/23 19:33 Interpretation: Reviewed report. cp Administered Medications: 18:17 Drug: HYDROcodone-acetaminophen PO 5 mg-325 mg 2 tabs PO once Route: PO; ld1 19:39 Follow up: Response: No adverse reaction; Pain is decreased al5 20:18 Follow up: Response: No adverse reaction; Pain is decreased al5 18:17 Drug: Ibuprofen PO 800 mg PO once Route: PO; ld1 19:39 Follow up: Response: No adverse reaction; Pain is decreased al5 20:18 Follow up: Response: No adverse reaction; Pain is decreased al5 Disposition: 06/24 06:21 Co-signature as Attending Physician, Randell Rolon MD I agree with the assessment and lucius plan of care. Disposition Summary: 06/23/24 19:37 Discharge Ordered Notes: Location: Home cp Problem: new cp Symptoms: have improved cp Condition: Stable cp Diagnosis - Other ovarian cysts cp Followup: cp - With: Private Physician - When: 1 week - Reason: Recheck today's complaints Discharge Instructions: - Discharge Summary Sheet cp - Ovarian Cyst cp Forms: - Medication Reconciliation Form cp - Antibiotic Education cp - Prescription Opioid Use cp - Patient Portal Instructions cp - Leadership Thank You Letter cp Prescriptions: - Diclofenac Sodium 75 mg Oral Tablet Sustained Release - take 1 tablet ORAL route 2 times per day; 30 tablet; Refills: 0, Product cp Selection Permitted Signatures: Dispatcher [employer] EDRandell Diallo MD MD cha Blanchard, Shelby, RN RN ss Randell Dickerson PA PA cp Sims, Lauren RN RN ld1 Power Pulido FNP-C SULFATE DRIER MACHINE OPERATOR-Cdr5 Candi Frank RN al5 Corrections: (The following items were deleted from the chart) 06/23 18:08 18:06 Patient is a 24-year-old female with history of depression, endometriosis, lupus, dr5 PCOS that had surgery 4 weeks ago for PCOS. Patient reports that she is concerned that since her pain is continuing that her IUD might be out of place. Patient called her surgeon and was placed on tramadol, ibuprofen, and Tylenol and is post to have her IUD removed this . Patient denies vaginal discharge or or bleeding.. dr5
[2024-06-23 21:16] VITALS: TEMP 98.7
[2024-06-23 21:18] VITALS: BP 133/83; O2SAT 96
== END 2024-06-23 20:19 | disposition home or self-care (01) ==
LOC: ER 16:38
DX: N83.291 Other ovarian cyst, right side (principal)
CPT/HCPCS: 76830; 99284

== ENCOUNTER 2024-10-02 17:05 | Emergency (ER) | payer SELFPAY ==
--- NOTE | 2024-10-02 18:37 | RAD REPORT ---
Transvaginal Study Probe CLINICAL INDICATION: Female 24 years old r/o torsion;Abd pain TECHNIQUE: Real-time ultrasonography of the pelvis was performed transvaginally. Color and spectral D oppler evaluation of the ovaries was performed. [id number]. COMPARISON: CT 08/21/2024 FINDINGS: UTERUS AND CERVIX: The uterus measures 7 x 3.4 x 4.2 cm (cervix to fundus x AP x transverse). The [place] is normal. No masses seen . The endometrium is normal,4 mm thickness. RIGHT OVARY: Multiple follicles identified. The right ovary measures 2.7 x 2.7 x 2.3 cm with volume o f 12.1 mL. Normal color and spectral Doppler evaluation of the right ovary.. LEFT OVARY: Multiple follicles identified. The left ovary measures 4.6 x 2.2 x 2.8 cm with volume o f 14.7 mL. Normal Color and spectral Doppler evaluation of the left ovary.. FREE FLUID: Complex free fluid present along the left ovary. IMPRESSION: 1. Free fluid adjacent to the left ovary is probably physiologic. 2. Bilateral ovarian blood flow.
[2024-10-02] MEDS ORDERED: MORPHINE 4 MG/ML SYR ONE (18:57)
[2024-10-02] MEDS ORDERED: NA CHLORIDE 0.9% 1,000 ML ONE (18:57)
[2024-10-02] MEDS ORDERED: ONDANSETRON 4 MG/2 ML VIAL ONE (18:57)
[2024-10-02 19:09] LABS: Absolute Lymphocytes (CBC) 2.3 K/uL (0.7-4.9); Hematocrit 39.5 % (36.0-45.0); Hemoglobin 13.5 g/dL (12.0-15.0); MCH 28.5 pg (27.0-35.0); MCHC 34.2 g/dL (32.0-36.0); MCV 83.3 fL (80-100); MPV 8.2 fL (7.6-11.3); Nucleated RBC Absolute Count 0.0 (0-0); Nucleated Red Blood Cells % 0.0 % (0-0); RBC Red Blood Cell Count 4.75 M/uL (3.86-4.86); White Blood Count 8.70 thou/uL (4.3-10.9)
[2024-10-02 19:27] LABS: ALT/SGPT 23.0 U/L (13-56); AST/SGOT 15.0 U/L (15-37); Albumin 4.0 g/dL (3.4-5.0); Albumin/Globulin Ratio 1.2 (1.1-1.8); Alkaline Phosphatase 80.0 U/L (45-117); Anion Gap 7.6 mEq/L (5.0-15.0); BUN Blood Urea Nitrogen 11.0 mg/dL (7-18); Globulin 3.4 g/dL (2.3-3.5); Glucose Level 95.0 mg/dL (74-106); Potassium 3.6 mEq/L (3.5-5.1)
--- NOTE | 2024-10-02 19:46 | EDPHYS ---
Physician Documentation [facility] Name: Dana Patton Age: 24 yrs Sex: Female : 2000 Arrival Date: 10/02/2024 Time: 17:05 Bed 16 Private MD: ED Physician Kumar Melvin HPI: 10/02 19:13 This 24 yrs old Female presents to ER via Ambulatory with complaints of Abdominal Pain, kb Nausea. 19:13 Patient is a 24-year-old female who presents for concern for ovarian torsion. States kb she has a history of endometriosis and PCOS so she gets large cysts. States she thinks that she has a cyst on the left that has caused an ovarian torsion. Reports she has been having pain since yesterday and the Tylenol 3 she has at home is not working. Denies vaginal bleeding, nausea, vomiting, diarrhea.. COMPLAINT ADJUSTER: 19:59 LMP N/A - Irregular menses, Not me1 Historical: - Allergies: 17:47 Adhesives; dd2 - PMHx: 17:47 depressive disorder; Endometriosis of vagina; PCOS; dd2 - PSHx: 17:47 ectopic lap.; R wrist SX; excision of endometrium; dd2 - Immunization history:: Adult Immunizations. - Infectious Disease History:: Denies. - Social history:: Smoking status: Reported history of juuling and/or vaping. ROS: 19:14 Constitutional: As per HPI kb Exam: 19:14 Constitutional: This is a well developed, well nourished patient who is awake, alert, kb and in no acute distress. Head/Face: Normocephalic, atraumatic. ENT: Moist Mucous membranes Cardiovascular: Regular rate Respiratory: Respirations even and unlabored. No increased work of breathing. Talking in full sentences Skin: Warm, dry with normal turgor. Normal color. MS/ Extremity: Pulses equal, no cyanosis. Neurovascular intact. Full, normal range of motion. Neuro: Awake and alert, GCS 15, oriented to person, place, time, and situation. 19:14 Abdomen/GI: Inspection: abdomen appears normal, Bowel sounds: normal, Palpation: soft, in all quadrants, mild abdominal tenderness, in the left lower quadrant, Vital Signs: 17:45 BP 139 / 98; Pulse 83; Resp 16; Temp 98.2; Pulse Ox 100% on R/A; Weight 88.45 kg; dd2 Height 5 ft. 5 in. ; Pain 10/10; 19:00 BP 121 / 82; Pulse 80; Resp 16; Pulse Ox 99% ; me1 19:53 BP 113 / 80; Pulse 74; Resp 16; Pulse Ox 100% ; me1 17:45 Body Mass Index 32.45 (88.45 kg, 165.1 cm) dd2 17:45 Pain Scale: Adult dd2 MDM: 17:11 Medical Screening Exam initiated 19:14 Differential diagnosis: Ovarian cyst, ovarian torsion, UTI, endometriosis. Data kb reviewed: vital signs, nurses notes. Historians other than the Patient: Spouse/Significant Other: significant other. 19:45 I considered the following discharge prescriptions or medication management in the emergency department I discussed and recommended Over The Counter medications, Antibiotics: At this time antibiotics are not recommended, Pain Medications: At this time, prescription pain medications are not recommended. Counseling: I had a detailed discussion with the patient and/or guardian regarding the historical points, exam findings, and any diagnostic results supporting the discharge/admit diagnosis, lab results, radiology results, the need for outpatient follow up, an OB/Gyne specialist, to return to the emergency department if symptoms worsen or persist or if there are any questions or concerns that arise at home. ED course: pt will follow up with [facility] and has another US scheduled for next week. 19:46 Test considered but Not performed: CT: ct abd considered but labs reassuring, pt kb afebrile. Discussed CT with pt and she is in agreement not to do the test at this time, but will return for worsening symptoms. 10/02 17:47 Order name: CBC with Diff; Complete Time: 19:23 kb 10/02 17:47 Order name: CMP; Complete Time: 19:32 kb 10/02 17:47 Order name: US Transvaginal Study (Probe); Complete Time: 18:42 kb 10/02 17:47 Order name: IV Saline Lock; Complete Time: 18:54 kb 10/02 17:47 Order name: Labs collected and sent; Complete Time: 18:54 kb Administered Medications: 19:01 Drug: NS 0.9% IV 1000 ml IV at 1 bolus Per protocol; to be given as a bolus over 60 me1 minutes Route: IV; Rate: 1 bolus; Site: right antecubital; 19:52 Follow up: Response: No adverse reaction; IV Status: Completed infusion; IV Intake: me1 1000ml 19:02 Drug: Ondansetron IVP 4 mg IVP once; over 2 minutes Route: IVP; Site: right antecubital;me1 19:22 Follow up: Response: No adverse reaction; Nausea is decreased me1 19:02 Drug: morphine IVP or IV 4 mg IVP once over 4 mins Route: IVP; Infused Over: 4 mins; me1 Site: right antecubital; 19:22 Follow up: Response: No adverse reaction me1 19:27 Follow up: Response: No adverse reaction; Pain is decreased me1 Disposition: 19:44 I was immediately available on-site in the Emergency Department for consultation in the ms3 care of the patient. Disposition Summary: 10/02/24 19:45 Discharge Ordered Notes: Location: Home kb Condition: Stable kb Diagnosis - Lower abdominal pain, unspecified kb Followup: kb - With: Emergency Department - When: As needed - Reason: Worsening of condition Followup: kb - With: Private Physician - When: 2 - 3 days - Reason: Recheck today's complaints, Continuance of care, Re-evaluation by your physician Discharge Instructions: - Discharge Summary Sheet kb - Pelvic Pain, Female, [id number] kb - Abdominal Pain, Adult, [id number] kb Forms: - Medication Reconciliation Form kb - Antibiotic Education kb - Prescription Opioid Use kb - Patient Portal Instructions kb - Leadership Thank You Letter kb Signatures: Dispatcher [employer] EDMS Tisha Morales, COMPUTER EDUCATION TEACHER-C COMPUTER EDUCATION TEACHER-Kumar Pham DO DO ms3 Erica Velasco, RN RN me1 DALLIN GARCIA, CELINE RN dd2 Corrections: (The following items were deleted from the chart) 17:48 17:48 CBC+H.LAB.BRZ ordered. EDMS EDMS 17:48 17:48 COMPREHENSIVE METABOLIC PANEL+C.LAB.BRZ ordered. EDMS EDMS 17:48 17:48 Transvaginal Study (Probe)+US.RAD.BRZ ordered. EDMS EDMS
--- NOTE | 2024-10-02 19:46 | ER ---
Nurse's Notes [facility] Name: Dana Patton Age: 24 yrs Sex: Female : 2000 Arrival Date: 10/02/2024 Time: 17:05 Bed 16 Private MD: Diagnosis: Lower abdominal pain, unspecified Presentation: 10/02 17:45 Chief complaint: Patient states: STOMACH PAIN ON THE LT LOWER SIDE, NAUSEA STARTING dd2 LAST NIGHT AT 8PM. Coronavirus screen: At this time, the client does not indicate any symptoms associated with coronavirus-19. Ebola Screen: No symptoms or risks identified at this time. Initial Sepsis Screen: Does the patient meet any 2 criteria? No. Patient's initial sepsis screen is negative. Does the patient have a suspected source of infection? No. Patient's initial sepsis screen is negative. Risk Assessment: Do you want to hurt yourself or someone else? Patient reports no desire to harm self or others. Onset of symptoms was October 01, 2024 at 20:00. 17:45 Method Of Arrival: Ambulatory dd2 17:45 Acuity: DOMINGO 3 dd2 Triage Assessment: 17:47 General: Appears in no apparent distress. uncomfortable, Behavior is calm, cooperative, dd2 appropriate for age. Pain: Complains of pain in left lower quadrant Pain currently is 10 out of 10 on a pain scale. GI: Reports lower abdominal pain, nausea. 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 - Infectious Disease History:: Denies. - Social history:: Smoking status: Reported history of juuling and/or vaping. Screenin:40 [facility] ED Fall Risk Assessment (Adult) History of falling in the last 3 months, me1 including since admission No falls in past 3 months (0 pts) Confusion or Disorientation No (0 pts) Intoxicated or Sedated No (0 pts) Impaired Gait No (0 pts) Mobility Assist Device Used No (0 pt) Altered Elimination No (0 pt) Score/Fall Risk Level 0 - 2 = Low Risk Maintained a safe environment, Provided non-skid footwear, Hourly rounding (assess needs \T\ fall precautionary measures) done. Abuse screen: Denies threats or abuse. Nutritional screening: No deficits noted. Tuberculosis screening: No symptoms or risk factors identified. Assessment: 18:40 General: Appears uncomfortable, well groomed, well developed, well nourished, Behavior me1 is calm, cooperative, appropriate for age, Reports STOMACH PAIN ON THE LT LOWER SIDE, NAUSEA STARTING LAST NIGHT AT 8PM. Pain: Complains of pain in left lower quadrant Pain does not radiate. Pain currently is 7 out of 10 on a pain scale. Quality of pain is described as sharp, stabbing, Pain began 1 day ago. Is continuous. Neuro: Level of Consciousness is awake, alert, obeys commands, Oriented to person, place, time, situation, Appropriate for age. Cardiovascular: Patient's skin is warm and dry. Respiratory: Airway is patent Respiratory effort is even, unlabored, Respiratory pattern is regular, symmetrical. GI: Abdomen is non-distended, Bowel sounds present X 4 quads. Abd is soft X 4 quads Reports lower abdominal pain, nausea, since last night. : No signs and/or symptoms were reported regarding the genitourinary system. EENT: No signs and/or symptoms were reported regarding the EENT system. Derm: Skin is intact, is healthy with good turgor, Skin is pink, warm \T\ dry. Musculoskeletal: No signs and/or symptoms reported regarding the musculoskeletal system. Vital Signs: 17:45 BP 139 / 98; Pulse 83; Resp 16; Temp 98.2; Pulse Ox 100% on R/A; Weight 88.45 kg; dd2 Height 5 ft. 5 in. ; Pain 10/10; 19:00 BP 121 / 82; Pulse 80; Resp 16; Pulse Ox 99% ; me1 19:53 BP 113 / 80; Pulse 74; Resp 16; Pulse Ox 100% ; me1 17:45 Body Mass Index 32.45 (88.45 kg, 165.1 cm) dd2 17:45 Pain Scale: Adult dd2 ED Course: 17:08 Patient arrived in ED. im 17:11 Tisha Morales FNP-C is PHCP. kb 17:11 Kumar Melvin DO is Attending Physician. kb 17:47 Triage completed. dd2 17:47 Arm band placed on right wrist. dd2 18:15 US Transvaginal Study (Probe) In Process Unspecified. EDMS 18:40 Patient has correct armband on for positive identification. Bed in low position. Call me1 light in reach. Side rails up X2. Provided Education on: POC. Verbalized understanding.. Client placed on continuous cardiac and pulse oximetry monitoring. NIBP monitoring applied. Pulse ox on. NIBP on. 18:40 No provider procedures requiring assistance completed. me1 18:42 Erica Velasco, RN is Primary Nurse. me1 18:54 CBC with Diff Sent. me1 18:54 CMP Sent. me1 18:54 Initial lab(s) drawn, by me, sent to lab. Inserted saline lock: 20 gauge in right me1 antecubital area, using aseptic technique. 19:59 IV discontinued, intact, bleeding controlled, No redness/swelling at site. Pressure me1 dressing applied. Administered Medications: 19:01 Drug: NS 0.9% IV 1000 ml IV at 1 bolus Per protocol; to be given as a bolus over 60 me1 minutes Route: IV; Rate: 1 bolus; Site: right antecubital; 19:52 Follow up: Response: No adverse reaction; IV Status: Completed infusion; IV Intake: me1 1000ml 19:02 Drug: Ondansetron IVP 4 mg IVP once; over 2 minutes Route: IVP; Site: right antecubital;me1 19:22 Follow up: Response: No adverse reaction; Nausea is decreased me1 19:02 Drug: morphine IVP or IV 4 mg IVP once over 4 mins Route: IVP; Infused Over: 4 mins; me1 Site: right antecubital; 19:22 Follow up: Response: No adverse reaction me1 19:27 Follow up: Response: No adverse reaction; Pain is decreased me1 Medication: 18:40 VIS not applicable for this client. me1 Intake: 19:52 IV: 1000ml; Total: 1000ml. me1 Outcome: 19:45 Discharge ordered by . kb 19:59 Discharged to home ambulatory, with significant other, me1 19:59 Condition: stable 19:59 Discharge instructions given to patient, Instructed on discharge instructions, follow up and referral plans. Demonstrated understanding of instructions, follow-up care, 20:00 Patient left the ED. me1 Signatures: Dispatcher [employer] Tisha Bonilla, ML-C LEAK GANG SUPERVISOR-Azul Salter Michelle, RN RN me1 DALLIN GARCIA RN RN dd2 Corrections: (The following items were deleted from the chart) 19:18 17:45 Chief complaint: Patient states: STOMACH PAIN ON THE LT LOWER SIDE, NAUSEA me1 STARTING LAST NIGHT AT 8PM. dd2
[2024-10-02 20:10] VITALS: TEMP 98.2
[2024-10-02 20:31] VITALS: BP 121/82; O2SAT 99
== END 2024-10-02 20:00 | disposition home or self-care (01) ==
LOC: ER 17:05
DX: R10.32 Left lower quadrant pain (principal)
CPT/HCPCS: 36415; 76830; 80053; 85025; 96361; 96374; 96375; 99284; J2405; J7030

== ENCOUNTER 2024-10-05 00:24 | Emergency (ER) | payer SELFPAY ==
[2024-10-05] MEDS ORDERED: ONDANSETRON 4 MG/2 ML VIAL ONE ×2 (00:55→03:03)
[2024-10-05] MEDS ORDERED: NA CHLORIDE 0.9% 1,000 ML ONE (00:55)
[2024-10-05] MEDS ORDERED: MORPHINE 4 MG/ML SYR ONE ×2 (00:55→01:41)
[2024-10-05] MEDS ORDERED: FAMOTIDINE 20 MG/2 ML VIAL IV ONE (00:55)
[2024-10-05 01:44] LABS: Absolute Lymphocytes (CBC) 3.6 K/uL (0.7-4.9); Hematocrit 40.3 % (36.0-45.0); Hemoglobin 13.9 g/dL (12.0-15.0); MCH 28.8 pg (27.0-35.0); MCHC 34.5 g/dL (32.0-36.0); MCV 83.4 fL (80-100); MPV 8.9 fL (7.6-11.3); Nucleated RBC Absolute Count 0.0 (0-0); Nucleated Red Blood Cells % 0.0 % (0-0); RBC Red Blood Cell Count 4.82 M/uL (3.86-4.86); White Blood Count 8.60 thou/uL (4.3-10.9)
[2024-10-05 02:03] LABS: ALT/SGPT 22.0 U/L (13-56); AST/SGOT 13.0 U/L (15-37); Albumin 4.0 g/dL (3.4-5.0); Albumin/Globulin Ratio 1.1 (1.1-1.8); Alkaline Phosphatase 86.0 U/L (45-117); Anion Gap 11.5 mEq/L (5.0-15.0); BUN Blood Urea Nitrogen 12.0 mg/dL (7-18); Globulin 3.7 g/dL (2.3-3.5); Glucose Level 124.0 mg/dL (74-106); Lipase 25.0 U/L (13-75); Potassium 3.5 mEq/L (3.5-5.1)
[2024-10-05] MEDS ORDERED: HYDROMORPHONE HCL 0.5 MG/0.5 ML INJ ONE (03:02)
[2024-10-05] MEDS ORDERED: PROMETHAZINE INJ 25 MG/ML AMP ONE (04:30)
--- NOTE | 2024-10-05 04:38 | EDPHYS ---
Physician Documentation [facility] Name: Dana Patton Age: 24 yrs Sex: Female : 2000 Arrival Date: 10/05/2024 Time: 00:24 Bed 17 Private MD: ED Physician Kumar Melvin HPI: 10/05 00:34 This 24 yrs old Female presents to ER via Unassigned with complaints of Abdominal Pain, ms3 Nausea/Vomiting. 00:34 24-year-old female with past medical history of endometriosis, PCOS presents to the [facility] emergency department for abdominal pain that is a painful fluttering sensation in her stomach that she rates a 10/10 currently. Patient states the pain began this morning and became worse over the last 4 to 5 hours. Patient endorses nausea and emesis x 1. Patient denies any alleviating or inciting factors. Patient states she took 2 Tylenol 3 without relief of her symptoms.. 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 - Infectious Disease History:: Denies. - Social history:: Smoking status: Reported history of juuling and/or vaping. Patient/guardian denies using alcohol, street drugs. ROS: 00:34 Constitutional: Negative for fever, and chills. Cardiovascular: Negative for chest ms3 pain, and palpitations. Respiratory: Negative for shortness of breath, cough, wheezing, and pleuritic chest pain, 00:34 MS/Extremity: Negative for injury and deformity, Skin: Negative for injury, rash, and discoloration, 00:34 Abdomen/GI: Positive for abdominal pain, nausea and vomiting, Exam: 00:34 Constitutional: This is a well developed, well nourished patient who is awake, alert, ms3 and in no acute distress. Cardiovascular: Regular rate and rhythm with a normal S1 and S2. No gallops, murmurs, or rubs. Normal PMI, no JVD. No pulse deficits. Respiratory: Lungs have equal breath sounds bilaterally, clear to auscultation and percussion. No rales, rhonchi or wheezes noted. No increased work of breathing, no retractions or nasal flaring. 00:34 Abdomen/GI: Inspection: abdomen appears normal, Bowel sounds: normal, in all quadrants, Palpation: mild abdominal tenderness, in all quadrants, Vital Signs: 00:44 BP 148 / 87; Pulse 108; Resp 20; Temp 98.3; Pulse Ox 97% ; Weight 88.45 kg; Height 5 bm8 ft. 5 in. ; Pain 10/10; 01:44 BP 122 / 61; Pulse 67; Resp 17; Pulse Ox 100% ; Pain 10/10; bm8 02:53 BP 145 / 92; Pulse 82; Resp 17; Pulse Ox 100% ; bm8 04:38 BP 123 / 77; Pulse 86; Resp 16; Temp 98.5; Pulse Ox 100% on R/A; zm 00:44 Body Mass Index 32.45 (88.45 kg, 165.1 cm) bm8 00:44 Pain Scale: Adult bm8 01:44 Pain Scale: Adult bm8 [place] Coma Score: 01:44 Eye Response: spontaneous(4). Motor Response: obeys commands(6). Verbal Response: bm8 oriented(5). Total: 15. 02:53 Eye Response: spontaneous(4). Motor Response: obeys commands(6). Verbal Response: bm8 oriented(5). Total: 15. 04:38 Eye Response: spontaneous(4). Motor Response: obeys commands(6). Verbal Response: zm oriented(5). Total: 15. MDM: 00:34 Medical Screening Exam initiated ms3 00:34 Differential diagnosis: Nonspecific abd pain, gastritis, appendicitis, diverticulitis, ms3 viral gastroenteritis, gastroenteritis, Endometriosis versus hemorrhagic ovarian cyst. 04:39 Data reviewed: vital signs, nurses notes, lab test result(s), radiologic studies, CT ms3 scan, and as a result, I will discharge patient. I considered the following discharge prescriptions or medication management in the emergency department Medications were administered in the Emergency Department. See MAR. Independent interpretation of the following test(s) in the Emergency Department CT Scan: My interpretation is CT abdomen/pelvis images reviewed by me did not reveal free air. Counseling: I had a detailed discussion with the patient and/or guardian regarding the historical points, exam findings, and any diagnostic results supporting the discharge/admit diagnosis, lab results, radiology results, the need for outpatient follow up, to return to the emergency department if symptoms worsen or persist or if there are any questions or concerns that arise at home. Response to treatment: the patient's symptoms have markedly improved after treatment, and as a result, I will discharge patient. Special discussion: Based on the patient's Hx, exam, and Dx evaluation, there is no indication for emergent surgery or inpatient Tx. It is understood by the patient/guardian that if the Sx's persist or worsen they need to return immediately for re-evaluation. ED course: On reevaluation patient's symptoms improved, patient is alert and orient x 4, no apparent distress, nontoxic-appearing, speaking full sentences. Patient to follow-up with her medical liaison and gastroenterology. Return precautions discussed include worsening symptoms, fevers, vomiting, or any other concerns. All questions were answered. 10/05 00:28 Order name: CBC with Diff; Complete Time: 02:17 ms3 10/05 00:28 Order name: CMP; Complete Time: 02:17 ms3 10/05 00:28 Order name: Lipase; Complete Time: 02:17 ms3 10/05 01:30 Order name: Test, Serum; Complete Time: 02:17 bm8 10/05 00:34 Order name: CT Abd/Pelvis - IV Contrast Only ms3 10/05 00:28 Order name: IV Saline Lock; Complete Time: 01:04 ms3 10/05 00:28 Order name: Labs collected and sent; Complete Time: 01:04 ms3 Administered Medications: 01:03 Drug: NS 0.9% IV 1000 ml IV at 1 bolus Per protocol; to be given as a bolus over 60 bm8 minutes Route: IV; Rate: 1 bolus; Site: right wrist; 02:27 Follow up: Response: No adverse reaction; IV Status: Completed infusion zm 01:04 Drug: morphine IVP or IV 4 mg IVP once over 4 mins Route: IVP; Infused Over: 4 mins; bm8 Site: right wrist; 02:26 Follow up: Response: No adverse reaction zm 01:04 Drug: Ondansetron IVP 4 mg IVP once; over 2 minutes Route: IVP; Site: right wrist; bm8 02:26 Follow up: Response: No adverse reaction zm 01:04 Drug: Famotidine IVP 20 mg IVP once; dilute with 10 mL 0.9% NaCl; give over 2 minutes bm8 Route: IVP; Site: right wrist; 02:26 Follow up: Response: No adverse reaction zm 01:51 Drug: morphine IVP or IV 4 mg IVP once over 4 mins Route: IVP; Infused Over: 4 mins; bm8 Site: right wrist; 02:27 Follow up: Response: No adverse reaction zm 03:09 Drug: HYDROmorphone IVP 0.5 mg IVP once Route: IVP; Site: right wrist; bm8 04:37 Follow up: Response: No adverse reaction zm 03:09 Drug: Ondansetron IVP 4 mg IVP once; over 2 minutes Route: IVP; Site: right wrist; bm8 04:37 Follow up: Response: No adverse reaction zm 04:36 Drug: Promethazine IM 12.5 mg IM once Route: IM; Site: right deltoid; zm 04:50 Follow up: Response: No adverse reaction bm8 Disposition Summary: 10/05/24 04:38 Discharge Ordered Notes: Location: Home ms3 Condition: Stable ms3 Diagnosis - Abdominal pain, Generalized ms3 - Nausea with vomiting, unspecified ms3 - Essential (primary) hypertension ms3 Followup: ms3 - With: Sean Bar MD - When: 2 - 3 days - Reason: Recheck today's complaints Followup: ms3 - With: Private Physician - When: 2 - 3 days - Reason: Recheck today's complaints Discharge Instructions: - Discharge Summary Sheet ms3 - Abdominal Pain, Adult ms3 - Constipation, Adult ms3 - Hypertension, Adult, [id number] ms3 - DASH Eating Plan ms3 Forms: - Medication Reconciliation Form ms3 - Antibiotic Education ms3 - Prescription Opioid Use ms3 - Patient Portal Instructions ms3 - Leadership Thank You Letter ms3 Prescriptions: - dicyclomine 10 mg Oral capsule - take 1 capsule ORAL route 4 times per day; 30 capsule; Refills: 0, Product ms3 Selection Permitted Signatures: Dispatcher [employer] Kumar Burger DO DO ms3 Deloris Rowe, RN RN zm Bin Griffith, RN RN bm8 Corrections: (The following items were deleted from the chart) 00:29 00:29 CBC+H.LAB.BRZ ordered. EDMS EDMS 00: 00:29 COMPREHENSIVE METABOLIC PANEL+C.LAB.BRZ ordered. EDMS EDMS 00:29 00:29 LIPASE+C.LAB.BRZ ordered. EDMS EDMS 00:29 00:29 Test, Urine+UC.LAB.BRZ ordered. EDMS EDMS 01:59 01:41 Test Serum, [place] ordered. EDMS EDMS
--- NOTE | 2024-10-05 04:38 | ER ---
Nurse's Notes [facility] Name: Dana Patton Age: 24 yrs Sex: Female : 2000 Arrival Date: 10/05/2024 Time: 00:24 Bed 17 Private MD: Diagnosis: Abdominal pain, Generalized;Nausea with vomiting, unspecified;Essential (primary) hypertension Presentation: 10/05 00:44 Chief complaint: Patient states: abd pain since noon and then threw up once in the last bm8 4 hours. Coronavirus screen: At this time, the client does not indicate any symptoms associated with coronavirus-19. Ebola Screen: Patient negative for fever greater than or equal to 101.5 degrees Fahrenheit, and additional compatible Ebola Virus Disease symptoms Patient denies exposure to infectious person. Patient denies travel to an Ebola-affected area in the 21 days before illness onset. No symptoms or risks identified at this time. Initial Sepsis Screen: Does the patient meet any 2 criteria? No. Patient's initial sepsis screen is negative. Does the patient have a suspected source of infection? No. Patient's initial sepsis screen is negative. 00:44 Method Of Arrival: Ambulatory bm8 02:27 Risk Assessment: Do you want to hurt yourself or someone else? Patient reports no zm desire to harm self or others. 02:27 Acuity: DOMINGO 3 zm 02:51 Onset of symptoms was October 04, 2024 at 12:00. zm Triage Assessment: 00:46 General: Appears distressed, uncomfortable, Behavior is calm, cooperative, appropriate bm8 for age. Pain: Complains of pain in abdomen Pain currently is 10 out of 10 on a pain scale. Quality of pain is described as aching, crampy. EENT: No deficits noted. No signs and/or symptoms were reported regarding the EENT system. Neuro: No deficits noted. Level of Consciousness is awake, alert, obeys commands, Oriented to person, place, time, situation, Appropriate for age. Cardiovascular: Denies chest pain, Capillary refill < 3 seconds in bilateral fingers Patient's skin is warm and dry. Respiratory: Airway is patent Respiratory effort is even, unlabored, Respiratory pattern is regular, symmetrical, Breath sounds are clear bilaterally. GI: Abdomen is non-distended, obese, Bowel sounds present X 4 quads. Reports lower abdominal pain, upper abdominal pain, nausea, Pain is 10 out of 10 on a pain scale. vomiting. : No signs and/or symptoms were reported regarding the genitourinary system. Derm: No signs and/or symptoms reported regarding the dermatologic system. Musculoskeletal: No signs and/or symptoms reported regarding the musculoskeletal system. 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 - Infectious Disease History:: Denies. - Social history:: Smoking status: Reported history of juuling and/or vaping. Patient/guardian denies using alcohol, street drugs. Screenin:44 [facility] ED Fall Risk Assessment (Adult) History of falling in the last 3 months, bm8 including since admission No falls in past 3 months (0 pts) Confusion or Disorientation No (0 pts) Intoxicated or Sedated No (0 pts) Impaired Gait No (0 pts) Mobility Assist Device Used No (0 pt) Altered Elimination No (0 pt) Score/Fall Risk Level 0 - 2 = Low Risk Oriented to surroundings, Maintained a safe environment, Educated pt \T\ family on fall prevention, incl call for assistance when getting out of bed, Assessed \T\ reinforced patient's understanding of fall precautions, Hourly rounding (assess needs \T\ fall precautionary measures) done, Used ambulatory aids as needed (educated on \T\ assisted with), Used gait belt as appropriate. Abuse screen: Denies threats or abuse. Nutritional screening: No deficits noted. Tuberculosis screening: No symptoms or risk factors identified. Assessment: :44 Reassessment: pt stated that she was feeling better but then her pain came back worse. bm8 Pt is currently crying and rocking back forth in bed with boyfriend at the bedside. Provider informed of pt's condition, new orders received. General: Appears distressed, uncomfortable, Behavior is calm, cooperative, appropriate for age. GI: Abd is soft and non tender X 4 quads. Reports lower abdominal pain, upper abdominal pain, Pain is 10 out of 10 on a pain scale. 02:53 Reassessment: Patient appears in no apparent distress at this time. No changes from bm8 previously documented assessment. Patient and/or family updated on plan of care and expected duration. Pain level reassessed. Patient is alert, oriented x 3, equal unlabored respirations, skin warm/dry/pink. 04:38 Reassessment: Patient appears in no apparent distress at this time. Patient and/or zm family updated on plan of care and expected duration. Pain level reassessed. Patient is alert, oriented x 3, equal unlabored respirations, skin warm/dry/pink. Patient states feeling better. Patient states symptoms have improved. Vital Signs: 00:44 BP 148 / 87; Pulse 108; Resp 20; Temp 98.3; Pulse Ox 97% ; Weight 88.45 kg; Height 5 bm8 ft. 5 in. ; Pain 10/10; 01:44 BP 122 / 61; Pulse 67; Resp 17; Pulse Ox 100% ; Pain 10/10; bm8 02:53 BP 145 / 92; Pulse 82; Resp 17; Pulse Ox 100% ; bm8 04:38 BP 123 / 77; Pulse 86; Resp 16; Temp 98.5; Pulse Ox 100% on R/A; zm 00:44 Body Mass Index 32.45 (88.45 kg, 165.1 cm) bm8 00:44 Pain Scale: Adult bm8 01:44 Pain Scale: Adult bm8 [place] Coma Score: 01:44 Eye Response: spontaneous(4). Motor Response: obeys commands(6). Verbal Response: bm8 oriented(5). Total: 15. 02:53 Eye Response: spontaneous(4). Motor Response: obeys commands(6). Verbal Response: bm8 oriented(5). Total: 15. 04:38 Eye Response: spontaneous(4). Motor Response: obeys commands(6). Verbal Response: zm oriented(5). Total: 15. ED Course: 00:26 Patient arrived in ED. [id number] 00:28 Kumar Melvin DO is Attending Physician. ms3 00:43 Bin Griffith, RN is Primary Nurse. bm8 00:46 Arm band placed on right wrist. bm8 00:58 Inserted saline lock: 20 gauge in right wrist, using aseptic technique. Blood zm collected. Flushed with 10 mL NS. 01:44 Patient has correct armband on for positive identification. Placed in gown. Bed in low bm8 position. Call light in reach. Side rails up X2. Adult w/ patient. Client placed on continuous cardiac and pulse oximetry monitoring. NIBP monitoring applied. Pulse ox on. NIBP on. Door closed. Noise minimized. Pillow given. Verbal reassurance given. Head of bed elevated. 01:44 No provider procedures requiring assistance completed. Initial lab(s) drawn, by ED bm8 staff, sent to lab. Patient maintains SpO2 saturation greater than 95% on room air. 02:23 CT Abd/Pelvis - IV Contrast Only In Process Unspecified. EDMS 02:28 Triage completed. zm 04:37 Sean Bar MD is Referral Physician. ms3 04:50 Provided Education on: post er care, constipation relief techniques. bm8 04:50 IV discontinued, intact, bleeding controlled, No redness/swelling at site. Pressure bm8 dressing applied. Administered Medications: 01:03 Drug: NS 0.9% IV 1000 ml IV at 1 bolus Per protocol; to be given as a bolus over 60 bm8 minutes Route: IV; Rate: 1 bolus; Site: right wrist; 02:27 Follow up: Response: No adverse reaction; IV Status: Completed infusion zm 01:04 Drug: morphine IVP or IV 4 mg IVP once over 4 mins Route: IVP; Infused Over: 4 mins; bm8 Site: right wrist; 02:26 Follow up: Response: No adverse reaction zm 01:04 Drug: Ondansetron IVP 4 mg IVP once; over 2 minutes Route: IVP; Site: right wrist; bm8 02:26 Follow up: Response: No adverse reaction zm 01:04 Drug: Famotidine IVP 20 mg IVP once; dilute with 10 mL 0.9% NaCl; give over 2 minutes bm8 Route: IVP; Site: right wrist; 02:26 Follow up: Response: No adverse reaction zm 01:51 Drug: morphine IVP or IV 4 mg IVP once over 4 mins Route: IVP; Infused Over: 4 mins; bm8 Site: right wrist; 02:27 Follow up: Response: No adverse reaction zm 03:09 Drug: HYDROmorphone IVP 0.5 mg IVP once Route: IVP; Site: right wrist; bm8 04:37 Follow up: Response: No adverse reaction zm 03:09 Drug: Ondansetron IVP 4 mg IVP once; over 2 minutes Route: IVP; Site: right wrist; bm8 04:37 Follow up: Response: No adverse reaction zm 04:36 Drug: Promethazine IM 12.5 mg IM once Route: IM; Site: right deltoid; zm 04:50 Follow up: Response: No adverse reaction bm8 Medication: 01:44 VIS not applicable for this client. bm8 Outcome: 04:38 Discharge ordered by MD. ms3 04:50 Discharged to home ambulatory, bm8 04:50 Condition: stable 04:50 Discharge instructions given to patient, family, Instructed on discharge instructions, follow up and referral plans. no drinking with medication, no driving heavy equipment, medication usage, safety practices, Demonstrated understanding of instructions, follow-up care, medications, Prescriptions given X 1, 04:51 Patient left the ED. bm8 Signatures: Dispatcher [employer] EDMS Kumar Melvin DO DO ms3 Estrella Mcclure [id number] Deloris Rowe RN RN Bin Griffith RN RN bm8
--- NOTE | 2024-10-05 05:38 | RAD REPORT ---
EXAM DESCRIPTION: Abdomen Pelvis W Contrast CLINICAL HISTORY: ABD PAIN COMPARISON: August 21, 2024 CT Abdomen Pelvis With Contrast. TECHNIQUE: Contiguous axial sections of the abdomen and pelvis were obtained with intravenous contrast. This exa m was performed according to our departmental dose-optimization program, which includes automated exposure control, adjustment of the mA and/or kV according to patient size and/or use of iterative re construction technique. FINDINGS: Lower Chest: The imaged lung bases are clear. No pleural or pericardial effusion. Organs: The liver, spleen, gallbladder, pancreas, and adrenal glands are normal. The kidneys are inta ct. GI/Bowel: There are no findings of small bowel obstruction. No acute bowel wall inflammatory changes. The appendix is normal. Moderate amount of retained fecal debris scattered throughout the colon. Pelvis: The bladder is normal. The rectum is normal. Minimal physiologic appearing pelvic free fluid. No pelvic lymphadenopathy. Peritoneum/Retroperitoneum: No intraperitoneal free air. No intraperitoneal free fluid. No mesenteric or retroperitoneal lymphadenopathy. Bones/Soft Tissues: There are no suspicious-appearing lytic or blastic osseous lesions. IMPRESSION: 1. No acute intra-abdominal or pelvic abnormality. 2. Constipation. 3. Minimal physiologic appearing pelvic free fluid. RECOMMENDATIONS: Electronically signed by: Kirill Marie MD 10/05/2024 03:56 AM CDT Due to temporary technical issues with the [employer] reporting system, reports are being rosibel d by the in-house radiologist without review as a courtesy to ensure prompt reporting the interpreting radiologist is fully responsible for the content of the report. Transcribed Date/Time: 10/05/2024 5:38 AM
[2024-10-05 11:05] VITALS: O2SAT 100
[2024-10-05 11:08] VITALS: BP 123/77; TEMP 98.5
== END 2024-10-05 04:51 | disposition home or self-care (01) ==
LOC: ER 00:24
DX: R10.84 Generalized abdominal pain (principal); R11.2 Nausea with vomiting, unspecified; I10 Essential (primary) hypertension
CPT/HCPCS: 36415; 74177; 80053; 83690; 84703; 85025; 96361; 96372; 96374; 96375; 99284; J1171; J2405; J2550; J7030; Q9967

== ENCOUNTER 2024-12-12 10:55 | Emergency (ER) | payer BC, SELFPAY ==
[2024-12-12] MEDS ORDERED: KETOROLAC 30 MG/ML INJ ONE (12:22)
--- NOTE | 2024-12-12 12:27 | RAD REPORT ---
EXAMINATION: US PELVIS TRANSVAGINAL WITH DOPPLER CLINICAL INDICATION: Female 24 years old. h/o cysts;Abd pain TECHNIQUE: Real-time ultrasonography of the pelvis was performed transvaginally. Color and spectral D oppler evaluation of the ovaries was performed. COMPARISON: No prior exam. FINDINGS: UTERUS AND CERVIX: The uterus measures 7.1 x 4.6 x 3.9 cm (cervix to fundus x AP x transverse). The u terus is normal. No masses seen The endometrium is normal, 2 mm in thickness. RIGHT OVARY: Normal. The right ovary measures 4.3 x 3.0 x 2.8 cm. Normal color and spectral Doppler evaluation of the right ovary.. 26 mm right ovarian follicle. LEFT OVARY: Normal. The left ovary measures 2.8 x 1.6 x 1.3 cm. Normal color and spectral Doppler evaluation of the left ovary.. FREE FLUID: Small, physiologic volume of free fluid in the pelvis. ADDITIONAL FINDINGS: IMPRESSION: No acute or pathologic finding.
[2024-12-12 12:35] LABS: Absolute Lymphocytes (CBC) 2.0 K/uL (0.7-4.9); Hematocrit 39.7 % (36.0-45.0); Hemoglobin 13.6 g/dL (12.0-15.0); MCH 28.4 pg (27.0-35.0); MCHC 34.4 g/dL (32.0-36.0); MCV 82.7 fL (80-100); MPV 8.1 fL (7.6-11.3); Nucleated RBC Absolute Count 0.0 (0-0); Nucleated Red Blood Cells % 0.0 % (0-0); RBC Red Blood Cell Count 4.80 M/uL (3.86-4.86); White Blood Count 8.20 thou/uL (4.3-10.9)
[2024-12-12 12:37] LABS: Urine Crystals Unidentified Few /HPF (None Seen); Urine Culture Reflex Order NOT NEEDED; Urine Microscopic Reflex YN ORDER UMIC; Urine Yeast (Budding) Trace /HPF (None Seen)
[2024-12-12 12:49] LABS: Anion Gap 10.9 mEq/L (5.0-15.0); BUN Blood Urea Nitrogen 9.0 mg/dL (7-18); Glucose Level 83.0 mg/dL (74-106); Potassium 3.9 mEq/L (3.5-5.1)
[2024-12-12] MEDS ORDERED: FENTANYL CITR 100 MCG/2 ML ONE (13:23)
--- NOTE | 2024-12-12 13:23 | RAD REPORT ---
EXAMINATION: Abdomen Pelvis W Contrast CLINICAL INDICATION: Female, 24 years old.ABD PAIN TECHNIQUE: CT abdomen and pelvis was performed, after the administration of IV contrast, as per [facility]. Axial, sagittal and coronal reconstructions were obtained. One or more of the following dose reduction techniques were used: Automated exposure control, adjustment of the mA and/o r kV according to patient size, and/or iterative reconstruction. Unless otherwise specified, incidental findings do not require dedicated imaging follow-up. [id number]. COMPARISON: No prior exams FINDINGS: LOWER CHEST: No acute process identified. No significant pericardial effusion. UPPER GI: No significant abnormality. LIVER: No significant focal abnormality. GALLBLADDER/BILE DUCTS: No biliary ductal dilatation.? PANCREAS: No mass, ductal dilation, or benjamín-pancreatic fluid. SPLEEN: Unremarkable. ADRENALS: No adrenal masses. KIDNEYS AND URETERS: No hydronephrosis. No suspicious renal mass. No renal calculi. No ureteral calcu li. ABDOMINAL AORTA AND OTHER VESSELS: Normal caliber aorta and IVC. PERITONEUM: Small volume of pelvic free fluid which is likely physiologic. LYMPH NODES: No pathologic lymphadenopathy. ABDOMINAL WALL: Unremarkable SMALL BOWEL/COLON: Small bowel has normal course and caliber. No colonic wall thickening or pericolon ic inflammatory changes. Normal appendix. URINARY BLADDER: Underdistended but grossly unremarkable. REPRODUCTIVE ORGANS: 2.3 cm right adnexal cyst which is likely physiologic. MUSCULOSKELETAL: No acute or suspicious osseous abnormality. ADDITIONAL FINDINGS: None. IMPRESSION: No acute findings within the abdomen or pelvis. No appendicitis. Pelvic free fluid is likely physiolo gic.
[2024-12-12] MEDS ORDERED: ONDANSETRON 4 MG/2 ML VIAL ONE (13:26)
--- NOTE | 2024-12-12 13:52 | ER ---
Nurse's Notes [facility] Name: Dana Patton Age: 24 yrs Sex: Female : 2000 Arrival Date: 12/12/2024 Time: 10:55 Bed 13 Private MD: Diagnosis: Acute on chronic pelvic pain Presentation: 12/12 11:20 Chief complaint: Patient states: LEFT PELVIC PAIN x36 HR, SENT BY RV MECHANIC FOR U/S. bp Coronavirus screen: At this time, the client does not indicate any symptoms associated with coronavirus-19. Ebola Screen: No symptoms or risks identified at this time. Initial Sepsis Screen: Does the patient meet any 2 criteria? No. Patient's initial sepsis screen is negative. Does the patient have a suspected source of infection? No. Patient's initial sepsis screen is negative. Risk Assessment: Do you want to hurt yourself or someone else? Patient reports no desire to harm self or others. Onset of symptoms is unknown. 11:20 Method Of Arrival: Ambulatory bp 11:20 Acuity: DOMINGO 3 bp Triage Assessment: 11:21 General: Appears in no apparent distress. uncomfortable, Behavior is calm, cooperative, bp appropriate for age. Pain: Complains of pain in pelvis. EENT: No deficits noted. Neuro: No deficits noted. Cardiovascular: No deficits noted. Respiratory: No deficits noted. GI: No signs and/or symptoms were reported involving the gastrointestinal system. : Reports pain in suprapubic area Denies vaginal bleeding. Derm: No deficits noted. Musculoskeletal: No deficits noted. 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 - Infectious Disease History:: Denies. - Social history:: Smoking status: Patient denies any tobacco usage or history of. Screenin:[facility] ED Fall Risk Assessment (Adult) History of falling in the last 3 months, me1 including since admission No falls in past 3 months (0 pts) Confusion or Disorientation No (0 pts) Intoxicated or Sedated No (0 pts) Impaired Gait No (0 pts) Mobility Assist Device Used No (0 pt) Altered Elimination No (0 pt) Score/Fall Risk Level 0 - 2 = Low Risk Maintained a safe environment, Provided non-skid footwear, Hourly rounding (assess needs \T\ fall precautionary measures) done. Abuse screen: Denies threats or abuse. Nutritional screening: No deficits noted. Tuberculosis screening: No symptoms or risk factors identified. Assessment: 12:15 General: Appears uncomfortable, well groomed, well developed, well nourished, Behavior me1 is calm, cooperative, appropriate for age, Reports LEFT PELVIC PAIN x36 HR, SENT BY RV MECHANIC FOR U/S. Pain: Complains of pain in left lower quadrant Pain does not radiate. Pain currently is 7 out of 10 on a pain scale. Quality of pain is described as sharp, Pain began 2-3 days ago. Is continuous. Neuro: Level of Consciousness is awake, alert, obeys commands, Oriented to person, place, time, situation, Appropriate for age. Cardiovascular: Patient's skin is warm and dry. Respiratory: Airway is patent Respiratory effort is even, unlabored, Respiratory pattern is regular, symmetrical. GI: Reports lower abdominal pain, since 3 days. : Reports pain in left lower quadrant(s) since 3 days ago. EENT: No signs and/or symptoms were reported regarding the EENT system. Derm: Skin is intact, is healthy with good turgor, Skin is normal. Musculoskeletal: Circulation, motion, and sensation intact. Range of motion: intact in all extremities. Vital Signs: 11:20 BP 147 / 95; Pulse 90; Resp 16; Temp 98; Pulse Ox 100% ; bp 12:00 BP 102 / 74; Pulse 60; Resp 16; Pulse Ox 99% ; me1 13:00 BP 113 / 69; Pulse 55; Resp 15; Pulse Ox 99% ; me1 14:00 BP 119 / 67; Pulse 58; Resp 16; Pulse Ox 100% ; me1 ED Course: 11:00 Patient arrived in ED. cj3 11:00 Malathi De La Rosa PA-C is PHCP. sb4 11:00 Randell Rolon MD is Attending Physician. sb4 11:21 Triage completed. bp 11:21 Arm band placed on. bp 12:06 Erica Velasco, RN is Primary Nurse. me1 12:15 Patient has correct armband on for positive identification. Bed in low position. Call me1 light in reach. Side rails up X 1. Provided Education on: POC. Verbalized understanding.. Client placed on continuous cardiac and pulse oximetry monitoring. NIBP monitoring applied. Pulse ox on. NIBP on. 12:15 No provider procedures requiring assistance completed. me1 12:20 Transvaginal Study (probe) In Process Unspecified. EDMS 12:20 Abdomen Pelvis Scan\E\US In Process Unspecified. EDMS 12:29 Initial lab(s) drawn, by me, sent to lab. Urine collected: clean catch specimen, me1 cloudy. Inserted saline lock: 22 gauge in left forearm, using aseptic technique. 12:29 Basic Metabolic Panel Sent. me1 12:29 CBC with Diff Sent. me1 12:29 Test, Urine Sent. me1 13:10 CT Abd/Pelvis - IV Contrast Only In Process Unspecified. EDMS 14:26 IV discontinued, intact, bleeding controlled, No redness/swelling at site. Pressure me1 dressing applied. Administered Medications: 12:35 Drug: Ketorolac IVP 15 mg IVP once Route: IVP; Site: left forearm; me1 13:37 Follow up: Response: No adverse reaction; Pain is unchanged, physician notified me1 13:37 Drug: fentaNYL (PF) IVP 25 mcg IVP once Route: IVP; Site: left forearm; me1 14:24 Follow up: Response: No adverse reaction; Pain is decreased me1 13:37 Drug: Ondansetron IVP 4 mg IVP once; over 2 minutes Route: IVP; Site: right forearm; me1 14:24 Follow up: Response: No adverse reaction; Nausea is decreased me1 Medication: 12:15 VIS not applicable for this client. me1 Outcome: 13:51 Discharge ordered by . kathy 14:26 Discharged to home ambulatory, me1 14:26 Condition: stable 14:26 Discharge instructions given to patient, Instructed on discharge instructions, follow up and referral plans. Demonstrated understanding of instructions, follow-up care, 14:26 Patient left the ED. me1 Signatures: Dispatcher [employer] Jersey Montez RN RN Malathi Singleton PA-C PAZakiC Erica Hutton, RN RN me1 Amita Stanley cj3 Corrections: (The following items were deleted from the chart) 13:28 11:20 Chief complaint: Patient states: LEFT PELVIC PAIN x36 HR, SENT BY RV MECHANIC FOR U/S bp me1
--- NOTE | 2024-12-12 13:52 | EDPHYS ---
Physician Documentation [facility] Name: Dana Patton Age: 24 yrs Sex: Female : 2000 Arrival Date: 12/12/2024 Time: 10:55 Bed 13 Private MD: LYNSEY Physician Randell Rolon HPI: 12/12 12:02 This 24 yrs old Female presents to ER via Ambulatory with complaints of Pelvic Pain. sb4 12:02 Patient reports pelvic pain for about a day and a half now. She states that it is sb4 localized to the left side, worse with standing. States that she feels bloated as well. Denies any vaginal bleeding or vaginal discharge. No urinary symptoms. States that her symptoms feel similar to when she has had large ovarian cyst in the past. 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 - Infectious Disease History:: Denies. - Social history:: Smoking status: Patient denies any tobacco usage or history of. ROS: 12:02 Constitutional: Negative for fever, chills, and weight loss, sb4 12:02 : Positive for pelvic pain, 12:02 All other systems are negative, Exam: 12:02 Head/Face: Normocephalic, atraumatic. Eyes: Extra-ocular motions intact. Periorbital sb4 areas with no swelling, redness, or edema. ENT: Mucous membranes moist. Cardiovascular: Regular rate and rhythm with a normal S1 and S2. Respiratory: No increased work of breathing, no retractions or nasal flaring. Skin: Warm, dry with normal turgor. Normal color with no rashes, no lesions, and no evidence of cellulitis. 12:02 Constitutional: The patient appears alert, awake, uncomfortable, 12:02 Abdomen/GI: Inspection: abdomen appears normal, Bowel sounds: normal, Palpation: soft, nontender, in the left lower quadrant, Vital Signs: 11:20 BP 147 / 95; Pulse 90; Resp 16; Temp 98; Pulse Ox 100% ; bp 12:00 BP 102 / 74; Pulse 60; Resp 16; Pulse Ox 99% ; me1 13:00 BP 113 / 69; Pulse 55; Resp 15; Pulse Ox 99% ; me1 14:00 BP 119 / 67; Pulse 58; Resp 16; Pulse Ox 100% ; me1 MDM: 11:02 Medical Screening Exam initiated sb4 14:03 Differential diagnosis: UTI, ovarian cyst, diverticulitis, colitis. Data reviewed: sb4 vital signs, nurses notes, lab test result(s), radiologic studies, and as a result, I will discharge patient. Counseling: I had a detailed discussion with the patient and/or guardian regarding the historical points, exam findings, and any diagnostic results supporting the discharge/admit diagnosis, lab results, radiology results, the need for outpatient follow up, for definitive care, an OB/Gyne specialist, to return to the emergency department if symptoms worsen or persist or if there are any questions or concerns that arise at home. Special discussion: Based on the patient's Hx, exam, and Dx evaluation, there is no indication for emergent surgery or inpatient Tx. It is understood by the patient/guardian that if the Sx's persist or worsen they need to return immediately for re-evaluation. 12/12 11:21 Order name: Basic Metabolic Panel; Complete Time: 12:51 sb4 12/12 11:21 Order name: CBC with Diff; Complete Time: 12:52 sb4 12/12 11:21 Order name: Test, Urine; Complete Time: 12:38 sb4 12/12 11:21 Order name: UA Rfx Catalino Cult if indicated; Complete Time: 12:38 sb4 12/12 11:21 Order name: Transvaginal Study (probe); Complete Time: 12:35 sb4 12/12 12:20 Order name: Abdomen Pelvis Scan\E\US; Complete Time: 12:35 EDMS 12/12 12:35 Order name: CT Abd/Pelvis - IV Contrast Only; Complete Time: 13:23 sb4 12/12 11:21 Order name: IV Saline Lock; Complete Time: 12:29 sb4 12/12 11:21 Order name: Labs collected and sent; Complete Time: 12:29 sb4 Administered Medications: 12:35 Drug: Ketorolac IVP 15 mg IVP once Route: IVP; Site: left forearm; me1 13:37 Follow up: Response: No adverse reaction; Pain is unchanged, physician notified me1 13:37 Drug: fentaNYL (PF) IVP 25 mcg IVP once Route: IVP; Site: left forearm; me1 14:24 Follow up: Response: No adverse reaction; Pain is decreased me1 13:37 Drug: Ondansetron IVP 4 mg IVP once; over 2 minutes Route: IVP; Site: right forearm; me1 14:24 Follow up: Response: No adverse reaction; Nausea is decreased me1 Disposition Summary: 12/12/24 13:51 Discharge Ordered Notes: Location: Home sb4 Problem: new sb4 Symptoms: have improved sb4 Condition: Stable sb4 Diagnosis - Acute on chronic pelvic pain sb4 Followup: sb4 - With: Private Physician - When: As needed - Reason: Recheck today's complaints, Re-evaluation by your physician Discharge Instructions: - Discharge Summary Sheet sb4 - Pelvic Pain, Female, [id number] sb4 Forms: - Patient Portal Instructions sb4 - Leadership Thank You Letter sb4 Signatures: Dispatcher [employer] Jersey Montez, RN RN Malathi Singleton PA-C PAHumphrey sb4 Erica Velasco RN RN me1 Corrections: (The following items were deleted from the chart) 11:21 11:21 BASIC METABOLIC PANEL+C.LAB.BRZ ordered. EDMS EDMS 11:21 11:21 CBC+H.LAB.BRZ ordered. EDMS EDMS 11:21 11:21 Test, Urine+UC.LAB.BRZ ordered. EDMS EDMS 11:21 11:21 UA Rfx Catalino Cult if indicated+U.LAB.BRZ ordered. EDMS EDMS 11:21 11:21 Transvaginal Study (Probe)+US.RAD.BRZ ordered. EDMS EDMS
[2024-12-12 15:05] VITALS: TEMP 98
[2024-12-12 15:13] VITALS: BP 119/67; O2SAT 100
== END 2024-12-12 14:26 | disposition home or self-care (01) ==
LOC: ER 10:55
DX: R10.22 Pelvic and perineal pain left side (principal)
CPT/HCPCS: 85025; 81001; 80048; 36415; 81025; 74177; 93975; 76830; 99284; Q9967; J1885; J3010; J2405